=== PATIENT | female | born 1950 | race Caucasian/White ===

== ENCOUNTER 2023-03-03 00:53 | Inpatient (IN) | payer OTHER ==
[2023-03-03] MEDS ORDERED: ONDANSETRON 4 MG/2 ML VIAL IVPUSH ONE (01:38)
[2023-03-03] MEDS ORDERED: SODIUM CHLORIDE 1,000 ML IV STA (01:41)
[2023-03-03] MEDS ORDERED: ACETAMINOPHEN 1000 MG/100 ML BAG IVPB ONE (01:41)
[2023-03-03] MEDS ORDERED: ACETAMINOPHEN INJECTION 100 ML IVPB ONE ×2 (01:57→10:42)
[2023-03-03] MEDS ORDERED: ONDANSETRON 4 MG/2 ML VIAL ONE (01:57)
[2023-03-03 02:32] LABS: BASO % 0.2 % (0-2.0); HEMATOCRIT 34.8 % (32.4-45.2); MCH 21.4 pg (25.7-33.7); MCHC 31.5 g/dl (32.0-36.0); MEAN CELL VOLUME 67.9 fl (80-96); MEAN PLT VOLUME 8.5 fl (7.5-11.1); MONO % 1.8 % (3.8-10.2); PLATELET COUNT 426 10^3/uL (134-434); RBC 5.13 M/mm3 (3.60-5.2); RDW 18.3 % (11.6-15.6)
[2023-03-03 02:34] LABS: VENOUS BASE EXCESS -1.1 mmol/L (-2-2); VENOUS O2 SATURATION 57.6 % (70-80); VENOUS PCO2 45.7 mmHg (38-52); VENOUS PH 7.35 (7.310-7.410)
[2023-03-03 02:40] LABS: INR 1.1 (0.83-1.09); PROTHROMBIN TIME (PATIENT) 12.8 SEC (9.7-13.0)
[2023-03-03 02:43] LABS: ACTIVATED PTT 30.7 SECONDS (25.2-36.5)
[2023-03-03 02:53] LABS: POTASSIUM 4.3 mmol/L (3.5-5.1)
[2023-03-03 02:55] LABS: CALCIUM 9.9 mg/dL (8.5-10.1)
[2023-03-03 02:56] LABS: ALBUMIN 3.9 g/dl (3.4-5.0); BLOOD UREA NITROGEN 16.8 mg/dL (7-18)
[2023-03-03 03:00] LABS: BILIRUBIN,TOTAL 0.6 mg/dL (0.2-1); TOT PROT 8.6 g/dl (6.4-8.2)
[2023-03-03] MEDS ORDERED: morphine CARPU-JECT 4 MG/1 ML DISP.SYRIN IVPUSH ONE ×2 (03:06→06:52)
[2023-03-03 03:09] LABS: LACTIC ACID 2.2 mmol/L (0.4-2.0)
[2023-03-03] MEDS ORDERED: METOCLOPRAMIDE HCL INJECTION 10 MG/2 ML VIAL IVPB ONE (03:19)
[2023-03-03] MEDS ORDERED: morphine SULFATE 4 MG/ML VIAL ONE ×2 (03:58→07:11)
[2023-03-03] MEDS ORDERED: METOCLOPRAMIDE HCL INJECTION 10 MG/2 ML VIAL ONE (03:58)
[2023-03-03 03:59] LABS: ANISOCYTOSIS 2+; MACROCYTOSIS 0; OVALOCYTE 1+
[2023-03-03] MEDS ORDERED: LIDOCAINE HCL 2% JELLY 6 ML TP ONE ×2 (06:37→06:44)
[2023-03-03 06:39] LABS: URINE APPEARANCE CLEAR; URINE BILIRUBIN NEGATIVE (NEGATIVE); URINE COLOR YELLOW; URINE GLUCOSE (UA) 3+ (NEGATIVE); URINE KETONE 1+ (NEGATIVE); URINE LEUK ESTERASE NEGATIVE (NEGATIVE); URINE NITRITE NEGATIVE (NEGATIVE); URINE PROTEIN NEGATIVE (NEGATIVE); URINE UROBILINOGEN 0.2 mg/dL (0.2-1.0)
[2023-03-03] MEDS ORDERED: TRIMETHOBENZAMIDE HCL 200MG/2ML INJ IM PRN (10:57)
[2023-03-03] MEDS: LACTATED RINGERS SOLUTION 1,000 ML/1,000 ML INFUS.BAG IV SCH ×2 (11:07→20:51)
[2023-03-03] MEDS: ACETAMINOPHEN 1000 MG/100 ML BAG IVPB PRN ×2 (11:08→20:51)
[2023-03-03] MEDS ORDERED: LACTATED RINGERS SOLUTION 1000 ML INFUS.BAG IV ONE (14:59)
[2023-03-03] MEDS ORDERED: SERTRALINE HCL 50 MG TABLET (FP) ONE (15:02)
[2023-03-03] MEDS: SERTRALINE HCL 50 MG TABLET (FP) PO SCH (15:21)
[2023-03-03] MEDS: ZIPRASIDONE 20 MG CAPSULE PO SCH (16:53)
[2023-03-03] MEDS ORDERED: ATORVASTATIN CA 80 MG TABLET (FP) PO SCH (22:00)
[2023-03-03] MEDS ORDERED: EZETIMIBE 10 MG TABLET (FP) PO SCH (22:00)
[2023-03-04] MEDS: ACETAMINOPHEN 1000 MG/100 ML BAG IVPB PRN (02:51)
[2023-03-04] MEDS: LACTATED RINGERS SOLUTION 1,000 ML/1,000 ML INFUS.BAG IV SCH ×3 (06:20→21:30)
[2023-03-04] MEDS: ZIPRASIDONE 20 MG CAPSULE PO SCH ×2 (08:17→18:35)
[2023-03-04 08:31] LABS: HEMATOCRIT 33.8 % (32.4-45.2); HEMOGLOBIN 10.3 GM/dL (10.7-15.3); MCH 21.1 pg (25.7-33.7); MCHC 30.6 g/dl (32.0-36.0); MEAN CELL VOLUME 68.9 fl (80-96); MEAN PLT VOLUME 8.8 fl (7.5-11.1); PLATELET COUNT 400 10^3/uL (134-434); RDW 18.5 % (11.6-15.6); WHITE BLOOD COUNT 17.5 K/mm3 (4.0-10.0)
[2023-03-04 08:45] LABS: POTASSIUM 4.3 mmol/L (3.5-5.1)
[2023-03-04 08:48] LABS: CALCIUM 8.6 mg/dL (8.5-10.1)
[2023-03-04 08:49] LABS: BLOOD UREA NITROGEN 32.3 mg/dL (7-18); MAGNESIUM 2.3 mg/dL (1.8-2.4)
[2023-03-04 08:51] LABS: CREATININE 1.5 mg/dL (0.55-1.3)
[2023-03-04 08:52] LABS: PHOSPHOROUS 4.7 mg/dL (2.5-4.9)
[2023-03-04 08:53] LABS: BILIRUBIN,TOTAL 0.9 mg/dL (0.2-1); TOT PROT 6.7 g/dl (6.4-8.2)
[2023-03-04 09:09] LABS: ALBUMIN 2.8 g/dl (3.4-5.0)
[2023-03-04 09:19] LABS: ANISOCYTOSIS 0; MACROCYTOSIS 0
[2023-03-04] MEDS ORDERED: REMDESIVIR 200 MG in SODIUM CHLORIDE 250 ML IVPB ONE (10:00)
[2023-03-04] MEDS: SERTRALINE HCL 50 MG TABLET (FP) PO SCH (10:06)
[2023-03-04] MEDS ORDERED: LACTATED RINGERS SOLUTION 1,000 ML/1,000 ML INFUS.BAG IV SCH (11:24)
[2023-03-04] MEDS ORDERED: SODIUM CHLORIDE 1,000 ML IV STA (12:54)
[2023-03-04 14:10] LABS: LACTIC ACID 2.9 mmol/L (0.4-2.0)
[2023-03-04] MEDS ORDERED: DEXAMETHASONE SOD PHOSPHATE 10 MG/1 ML VIAL IVPUSH SCH (14:15)
[2023-03-04] MEDS ORDERED: HYDROmorphone HCl 2 MG/ML VIAL IVPB PRN (15:15)
[2023-03-04] MEDS ORDERED: PROPOFOL 20 ML ONE (15:46)
[2023-03-04] MEDS ORDERED: LIDOCAINE HCL/PF 2% SDV 5ML VIAL ONE (15:46)
[2023-03-04] MEDS ORDERED: ROCURONIUM BROMIDE 50 MG/5 ML SYRINGE ONE ×2 (15:46→19:28)
[2023-03-04] MEDS ORDERED: SUCCINYLCHOLINE CHLORIDE 200 MG/10 ML SYRINGE ONE (15:46)
[2023-03-04] MEDS ORDERED: MIDAZOLAM HCL 2 MG/2 ML SINGLE DOSE VIAL ONE (15:46)
[2023-03-04] MEDS ORDERED: ACETAMINOPHEN 1000 MG/100 ML BAG IVPB PRN (15:53)
[2023-03-04] MEDS ORDERED: BUPIVACAINE HCL/PF 0.25% (2.5MG/ML) 10 ML VIAL ONE (16:00)
[2023-03-04] MEDS ORDERED: DEXAMETHASONE SOD PHOSPHATE 4 MG/1 ML VIAL ONE (17:03)
[2023-03-04] MEDS ORDERED: ceFAZolin SODIUM 1 GM VIAL ONE (17:07)
[2023-03-04] MEDS ORDERED: ceFAZolin SODIUM 1 GM VIAL IVPB ONE (17:10)
[2023-03-04] MEDS ORDERED: HEPARIN NA (PORCINE) 5,000 UNITS/ML 1ML VIAL ONE (17:30)
[2023-03-04] MEDS ORDERED: NEOSTIGMINE METHYLSULFATE 0.5 MG/1 ML - 10 ML MDV ONE (20:15)
[2023-03-04] MEDS ORDERED: ONDANSETRON 4 MG/2 ML VIAL IVPUSH PRN ×2 (20:30→21:07)
[2023-03-04] MEDS ORDERED: LACTATED RINGERS SOLUTION 1,000 ML IV SCH ×2 (20:30→21:07)
[2023-03-04] MEDS ORDERED: PROMETHAZINE HCL 25 MG/1 ML VIAL IVPB PRN ×2 (20:30→21:07)
[2023-03-04] MEDS ORDERED: KETOROLAC TROMETHAMINE 30 MG/1 ML VIAL IVPUSH ONE ×2 (20:31→21:45)
[2023-03-04] MEDS ORDERED: ACETAMINOPHEN 1000 MG/100 ML BAG IVPB ONE ×2 (20:31→22:00)
[2023-03-04] MEDS ORDERED: METOPROLOL TARTRATE 5 MG/5 ML VIAL ONE (20:33)
[2023-03-04] MEDS ORDERED: METOPROLOL TARTRATE 5 MG/5 ML VIAL IVPUSH ONE ×2 (20:33→21:07)
[2023-03-04] MEDS ORDERED: ONDANSETRON 4 MG/2 ML VIAL ONE (20:38)
[2023-03-04] MEDS ORDERED: ACETAMINOPHEN INJECTION 100 ML IVPB ONE (20:38)
[2023-03-04] MEDS ORDERED: KETOROLAC TROMETHAMINE 30 MG/1 ML VIAL ONE (20:39)
[2023-03-04] MEDS ORDERED: TRIMETHOBENZAMIDE HCL 200MG/2ML INJ IM PRN (21:07)
[2023-03-04] MEDS: MUPIROCIN 2% TOPICAL OINTMENT FOR DECOLONIZATION NS SCH (23:00)
[2023-03-04] MEDS: CHLORHEXIDINE GLUCONATE 4% CLEANSER FOR DECOLONIZATION TP SCH (23:00)
[2023-03-04 23:12] LABS: BASO % 0.1 % (0-2.0); EOS % 0.9 % (0-4.5); HEMATOCRIT 32.4 % (32.4-45.2); HEMOGLOBIN 10.4 GM/dL (10.7-15.3); LYMPH % 6.7 % (8-40); MCH 21.6 pg (25.7-33.7); MEAN CELL VOLUME 67.5 fl (80-96); MEAN PLT VOLUME 8.4 fl (7.5-11.1); MONO % 3.6 % (3.8-10.2); NEUT % 88.7 % (42.8-82.8); PLATELET COUNT 405 10^3/uL (134-434); RDW 18.3 % (11.6-15.6); WHITE BLOOD COUNT 6.6 K/mm3 (4.0-10.0)
[2023-03-04] MEDS: ATORVASTATIN CA 80 MG TABLET (FP) PO SCH (23:13)
[2023-03-04] MEDS: EZETIMIBE 10 MG TABLET (FP) PO SCH (23:13)
[2023-03-04] MEDS: BUDESONIDE/FORMETEROL FUMARATE 80/4.5 mcg INHALER IH SCH (23:13)
[2023-03-04] MEDS ORDERED: PIPERACILLIN/TAZOB 3.375 GM 3.375 GM in DEXTROSE 5%-WATER - 50 ML IVPB SCH (23:15)
[2023-03-04] MEDS: PANTOPRAZOLE SODIUM 40 MG VIAL IVPUSH SCH (23:16)
[2023-03-04] MEDS ORDERED: LACTATED RINGERS SOLUTION 1000 ML INFUS.BAG IV ONE (23:29)
[2023-03-04 23:45] LABS: ANISOCYTOSIS 3+; MACROCYTOSIS 0; OVALOCYTE 1+; TARGET CELLS 1+
[2023-03-04 23:47] LABS: POTASSIUM 4.5 mmol/L (3.5-5.1)
[2023-03-04 23:49] LABS: CALCIUM 7.8 mg/dL (8.5-10.1)
[2023-03-04 23:50] LABS: BLOOD UREA NITROGEN 33.6 mg/dL (7-18); MAGNESIUM 2.2 mg/dL (1.8-2.4)
[2023-03-04 23:53] LABS: CREATININE 1.4 mg/dL (0.55-1.3); PHOSPHOROUS 4.7 mg/dL (2.5-4.9)
[2023-03-04 23:54] LABS: BILIRUBIN,TOTAL 0.6 mg/dL (0.2-1); TOT PROT 5.7 g/dl (6.4-8.2)
[2023-03-04 23:58] LABS: ALBUMIN 2.2 g/dl (3.4-5.0)
[2023-03-05] LABS: LACTIC ACID 4.9 mmol/L (0.4-2.0)
[2023-03-05] MEDS: PIPERACILLIN/TAZOB 3.375 GM 3.375 GM in DEXTROSE 5%-WATER - 50 ML IVPB SCH ×3 (02:14→17:45)
[2023-03-05] MEDS: ACETAMINOPHEN 1000 MG/100 ML BAG IVPB SCH ×4 (02:50→22:01)
[2023-03-05] MEDS ORDERED: LACTATED RINGERS SOLUTION 1000 ML INFUS.BAG IV ONE (03:00)
[2023-03-05] MEDS ORDERED: ACETAMINOPHEN 1000 MG/100 ML BAG IVPB PRN (03:30)
[2023-03-05] MEDS: HYDROmorphone HCl 2 MG/ML VIAL IVPB PRN ×3 (05:17→17:40)
[2023-03-05] MEDS: LACTATED RINGERS SOLUTION 1,000 ML/1,000 ML INFUS.BAG IV SCH ×3 (05:57→22:06)
[2023-03-05 07:19] LABS: HEMATOCRIT 28.3 % (32.4-45.2); HEMOGLOBIN 8.8 GM/dL (10.7-15.3); MCH 21.2 pg (25.7-33.7); MCHC 31.2 g/dl (32.0-36.0); MEAN PLT VOLUME 8.3 fl (7.5-11.1); PLATELET COUNT 349 10^3/uL (134-434); RBC 4.16 M/mm3 (3.60-5.2); RDW 18.5 % (11.6-15.6); WHITE BLOOD COUNT 8.8 K/mm3 (4.0-10.0)
[2023-03-05] MEDS ORDERED: REMDESIVIR 100 MG in SODIUM CHLORIDE 270 ML IVPB SCH (08:00)
[2023-03-05 08:19] LABS: POTASSIUM 4.3 mmol/L (3.5-5.1)
[2023-03-05 08:37] LABS: LACTIC ACID 3.3 mmol/L (0.4-2.0)
[2023-03-05 08:49] LABS: BLOOD UREA NITROGEN 39.6 mg/dL (7-18)
[2023-03-05 08:51] LABS: ALBUMIN 1.9 g/dl (3.4-5.0); CALCIUM 7.9 mg/dL (8.5-10.1)
[2023-03-05 08:53] LABS: CREATININE 1.5 mg/dL (0.55-1.3)
[2023-03-05 08:55] LABS: BILIRUBIN,TOTAL 0.7 mg/dL (0.2-1); TOT PROT 5.1 g/dl (6.4-8.2)
[2023-03-05] MEDS: MUPIROCIN 2% TOPICAL OINTMENT FOR DECOLONIZATION NS SCH ×2 (09:09→22:02)
[2023-03-05] MEDS: PANTOPRAZOLE SODIUM 40 MG VIAL IVPUSH SCH (09:09)
[2023-03-05] MEDS: ZIPRASIDONE 20 MG CAPSULE PO SCH ×2 (09:10→17:58)
[2023-03-05] MEDS: SERTRALINE HCL 50 MG TABLET (FP) PO SCH (09:11)
[2023-03-05] MEDS: ENOXAPARIN NA (PORCINE) 40 MG/0.4 ML DISP.SYRIN SQ SCH (09:28)
[2023-03-05 14:06] LABS: HEMATOCRIT 26.6 % (32.4-45.2); HEMOGLOBIN 8.4 GM/dL (10.7-15.3); MCH 21.5 pg (25.7-33.7); MCHC 31.6 g/dl (32.0-36.0); MEAN CELL VOLUME 67.8 fl (80-96); MEAN PLT VOLUME 8.9 fl (7.5-11.1); PLATELET COUNT 330 10^3/uL (134-434); RBC 3.93 M/mm3 (3.60-5.2); RDW 18.3 % (11.6-15.6); WHITE BLOOD COUNT 9.4 K/mm3 (4.0-10.0)
[2023-03-05 14:26] LABS: CALCIUM 7.6 mg/dL (8.5-10.1)
[2023-03-05 14:28] LABS: ALBUMIN 1.8 g/dl (3.4-5.0); BLOOD UREA NITROGEN 39.6 mg/dL (7-18)
[2023-03-05 14:31] LABS: BILIRUBIN,TOTAL 0.4 mg/dL (0.2-1); CREATININE 1.4 mg/dL (0.55-1.3)
[2023-03-05 14:34] LABS: LACTIC ACID 2.6 mmol/L (0.4-2.0)
[2023-03-05 14:35] LABS: POTASSIUM 4.3 mmol/L (3.5-5.1)
[2023-03-05 15:08] LABS: ANISOCYTOSIS 0; MACROCYTOSIS 0
[2023-03-05] MEDS: BUDESONIDE/FORMETEROL FUMARATE 80/4.5 mcg INHALER IH SCH ×2 (18:34→22:02)
[2023-03-05] MEDS: EZETIMIBE 10 MG TABLET (FP) PO SCH (21:58)
[2023-03-05] MEDS: ATORVASTATIN CA 80 MG TABLET (FP) PO SCH (21:58)
[2023-03-05] MEDS: CHLORHEXIDINE GLUCONATE 4% CLEANSER FOR DECOLONIZATION TP SCH (22:02)
[2023-03-05] MEDS ORDERED: PIPERACILLIN/TAZOB 3.375 GM 3.375 GM in DEXTROSE 5%-WATER - 50 ML IVPB SCH (23:15)
[2023-03-06] MEDS: PIPERACILLIN/TAZOB 3.375 GM 3.375 GM in DEXTROSE 5%-WATER - 50 ML IVPB SCH ×3 (01:45→17:15)
[2023-03-06] MEDS: LACTATED RINGERS SOLUTION 1,000 ML/1,000 ML INFUS.BAG IV SCH ×2 (04:27→07:29)
[2023-03-06] MEDS: ACETAMINOPHEN 1000 MG/100 ML BAG IVPB SCH (04:28)
[2023-03-06] MEDS: ZIPRASIDONE 20 MG CAPSULE PO SCH ×2 (07:48→17:23)
[2023-03-06 08:06] LABS: POTASSIUM 3.6 mmol/L (3.5-5.1)
[2023-03-06 08:10] LABS: ALBUMIN 1.7 g/dl (3.4-5.0); BLOOD UREA NITROGEN 28.7 mg/dL (7-18); CALCIUM 7.6 mg/dL (8.5-10.1); MAGNESIUM 2.3 mg/dL (1.8-2.4)
[2023-03-06 08:13] LABS: CREATININE 0.9 mg/dL (0.55-1.3); PHOSPHOROUS 2.4 mg/dL (2.5-4.9)
[2023-03-06 08:14] LABS: BILIRUBIN,TOTAL 0.4 mg/dL (0.2-1)
[2023-03-06 08:27] LABS: EOS % 0.1 % (0-4.5); HEMATOCRIT 24.1 % (32.4-45.2); HEMOGLOBIN 7.8 GM/dL (10.7-15.3); LYMPH % 10.2 % (8-40); MCH 21.6 pg (25.7-33.7); MCHC 32.6 g/dl (32.0-36.0); MEAN CELL VOLUME 66.2 fl (80-96); MEAN PLT VOLUME 8.5 fl (7.5-11.1); MONO % 3.4 % (3.8-10.2); NEUT % 86.3 % (42.8-82.8); PLATELET COUNT 336 10^3/uL (134-434); RBC 3.64 M/mm3 (3.60-5.2); RDW 18.4 % (11.6-15.6); WHITE BLOOD COUNT 9.1 K/mm3 (4.0-10.0)
[2023-03-06] MEDS: PANTOPRAZOLE SODIUM 40 MG VIAL IVPUSH SCH (09:26)
[2023-03-06] MEDS: MUPIROCIN 2% TOPICAL OINTMENT FOR DECOLONIZATION NS SCH ×2 (09:26→21:28)
[2023-03-06] MEDS: ENOXAPARIN NA (PORCINE) 40 MG/0.4 ML DISP.SYRIN SQ SCH (09:26)
[2023-03-06] MEDS: SODIUM CHLORIDE 0.45% 1,000 ML IV SCH ×2 (09:26→21:49)
[2023-03-06] MEDS: REMDESIVIR 100 MG in SODIUM CHLORIDE 250 ML IVPB SCH (09:27)
[2023-03-06] MEDS ORDERED: DEXMEDETOMIDINE PREMIX 400 MCG/100 ML BAG IVPB SCH (10:00)
[2023-03-06 10:21] LABS: ANISOCYTOSIS 2+; MACROCYTOSIS 0; OVALOCYTE 2+; TARGET CELLS 2+; TEAR DROP CELLS 2+
[2023-03-06] MEDS: SERTRALINE HCL 50 MG TABLET (FP) PO SCH (10:39)
[2023-03-06] MEDS: BUDESONIDE/FORMETEROL FUMARATE 80/4.5 mcg INHALER IH SCH ×2 (10:39→21:36)
[2023-03-06] MEDS: DEXMEDETOMIDINE PREMIX 400 MCG/100 ML BAG IVPB SCH ×2 (10:40→17:15)
[2023-03-06] MEDS: HYDROmorphone HCl 2 MG/ML VIAL IVPB PRN ×2 (12:22→21:29)
[2023-03-06] MEDS: INSULIN (LEVEMIR) 100 UNITS/ML UNITS SQ SCH (13:00)
[2023-03-06 13:45] VITALS: BMI 42.8
[2023-03-06] MEDS ORDERED: DEXAMETHASONE SOD PHOSPHATE 10 MG/1 ML VIAL IVPUSH ONE (16:15)
[2023-03-06] MEDS: CHLORHEXIDINE GLUCONATE 4% CLEANSER FOR DECOLONIZATION TP SCH (21:28)
[2023-03-06] MEDS: EZETIMIBE 10 MG TABLET (FP) PO SCH (21:29)
[2023-03-06] MEDS: ATORVASTATIN CA 80 MG TABLET (FP) PO SCH (21:29)
[2023-03-07] MEDS: DEXMEDETOMIDINE PREMIX 400 MCG/100 ML BAG IVPB SCH ×3 (01:10→17:46)
[2023-03-07] MEDS: PIPERACILLIN/TAZOB 3.375 GM 3.375 GM in DEXTROSE 5%-WATER - 50 ML IVPB SCH ×3 (01:10→17:46)
[2023-03-07] MEDS: SODIUM CHLORIDE 0.45% 1,000 ML IV SCH ×4 (04:47→15:05)
[2023-03-07 07:25] LABS: HEMATOCRIT 23.8 % (32.4-45.2); HEMOGLOBIN 7.6 GM/dL (10.7-15.3); MCH 21.5 pg (25.7-33.7); MCHC 31.9 g/dl (32.0-36.0); MEAN CELL VOLUME 67.3 fl (80-96); MEAN PLT VOLUME 8.4 fl (7.5-11.1); PLATELET COUNT 357 10^3/uL (134-434); RBC 3.54 M/mm3 (3.60-5.2); RDW 18.4 % (11.6-15.6)
[2023-03-07 07:32] LABS: POTASSIUM 3.9 mmol/L (3.5-5.1)
[2023-03-07 07:34] LABS: ALBUMIN 1.7 g/dl (3.4-5.0); BLOOD UREA NITROGEN 26.1 mg/dL (7-18); CALCIUM 7.6 mg/dL (8.5-10.1); MAGNESIUM 2.7 mg/dL (1.8-2.4)
[2023-03-07 07:37] LABS: PHOSPHOROUS 3.3 mg/dL (2.5-4.9)
[2023-03-07 07:38] LABS: CREATININE 0.8 mg/dL (0.55-1.3)
[2023-03-07 07:40] LABS: BILIRUBIN,TOTAL 0.5 mg/dL (0.2-1); TOT PROT 5.4 g/dl (6.4-8.2)
[2023-03-07 08:17] LABS: ARTERIAL BLD GAS O2 SATURATION 95.7 % (95-98); ARTERIAL BLOOD GAS PO2 75.8 mmHg (80-100); ARTERIAL BLOOD GAS pH 7.433 (7.350-7.450)
[2023-03-07 08:19] LABS: ALLENS TEST POSITIVE
[2023-03-07] MEDS: ZIPRASIDONE 20 MG CAPSULE PO SCH ×2 (08:39→17:50)
[2023-03-07 09:44] LABS: ANISOCYTOSIS 2+
[2023-03-07] MEDS: MUPIROCIN 2% TOPICAL OINTMENT FOR DECOLONIZATION NS SCH ×2 (10:32→21:50)
[2023-03-07] MEDS: SERTRALINE HCL 50 MG TABLET (FP) PO SCH (10:33)
[2023-03-07] MEDS: ENOXAPARIN NA (PORCINE) 40 MG/0.4 ML DISP.SYRIN SQ SCH (10:37)
[2023-03-07] MEDS: PANTOPRAZOLE SODIUM 40 MG VIAL IVPUSH SCH (10:37)
[2023-03-07] MEDS: REMDESIVIR 100 MG in SODIUM CHLORIDE 250 ML IVPB SCH (10:37)
[2023-03-07] MEDS: BUDESONIDE/FORMETEROL FUMARATE 80/4.5 mcg INHALER IH SCH ×2 (12:20→21:55)
[2023-03-07] MEDS ORDERED: AMINO ACIDS 4.25%/D5W 1,000 ML IV SCH (13:30)
[2023-03-07] MEDS: HYDROmorphone HCl 2 MG/ML VIAL IVPB PRN (17:47)
[2023-03-07] MEDS: CHLORHEXIDINE GLUCONATE 4% CLEANSER FOR DECOLONIZATION TP SCH (21:50)
[2023-03-07] MEDS: ATORVASTATIN CA 80 MG TABLET (FP) PO SCH (21:51)
[2023-03-07] MEDS: EZETIMIBE 10 MG TABLET (FP) PO SCH (21:52)
[2023-03-08] MEDS: PIPERACILLIN/TAZOB 3.375 GM 3.375 GM in DEXTROSE 5%-WATER - 50 ML IVPB SCH ×3 (01:02→18:07)
[2023-03-08] MEDS: DEXMEDETOMIDINE PREMIX 400 MCG/100 ML BAG IVPB SCH ×3 (05:20→19:26)
[2023-03-08] MEDS: SODIUM CHLORIDE 0.45% 1,000 ML IV SCH (05:36)
[2023-03-08 07:51] LABS: HEMATOCRIT 24.9 % (32.4-45.2); HEMOGLOBIN 7.9 GM/dL (10.7-15.3); MCH 21.3 pg (25.7-33.7); MCHC 31.6 g/dl (32.0-36.0); MEAN CELL VOLUME 67.3 fl (80-96); MEAN PLT VOLUME 8.4 fl (7.5-11.1); PLATELET COUNT 352 10^3/uL (134-434); RBC 3.69 M/mm3 (3.60-5.2); RDW 18.9 % (11.6-15.6); WHITE BLOOD COUNT 7.9 K/mm3 (4.0-10.0)
[2023-03-08 07:55] LABS: POTASSIUM 3.5 mmol/L (3.5-5.1)
[2023-03-08 08:00] LABS: CALCIUM 7.6 mg/dL (8.5-10.1); MAGNESIUM 2.1 mg/dL (1.8-2.4)
[2023-03-08 08:01] LABS: ALBUMIN 1.6 g/dl (3.4-5.0); BLOOD UREA NITROGEN 22.1 mg/dL (7-18)
[2023-03-08 08:04] LABS: CREATININE 0.7 mg/dL (0.55-1.3)
[2023-03-08 08:05] LABS: BILIRUBIN,TOTAL 0.5 mg/dL (0.2-1); TOT PROT 5.5 g/dl (6.4-8.2)
[2023-03-08 09:04] LABS: ANISOCYTOSIS 1+
[2023-03-08] MEDS: AMINO ACIDS 4.25%/D5W 1,000 ML IV SCH ×2 (10:47→21:15)
[2023-03-08] MEDS: REMDESIVIR 100 MG in SODIUM CHLORIDE 250 ML IVPB SCH (10:48)
[2023-03-08] MEDS: ENOXAPARIN NA (PORCINE) 40 MG/0.4 ML DISP.SYRIN SQ SCH (10:48)
[2023-03-08] MEDS: PANTOPRAZOLE SODIUM 40 MG VIAL IVPUSH SCH (10:49)
[2023-03-08] MEDS: HYDROmorphone HCl 2 MG/ML VIAL IVPB PRN ×2 (10:59→16:21)
[2023-03-08] MEDS: ZIPRASIDONE 20 MG CAPSULE PO SCH ×2 (11:43→18:07)
[2023-03-08] MEDS: SERTRALINE HCL 50 MG TABLET (FP) PO SCH (11:43)
[2023-03-08] MEDS: MUPIROCIN 2% TOPICAL OINTMENT FOR DECOLONIZATION NS SCH ×2 (11:44→21:15)
[2023-03-08] MEDS: BUDESONIDE/FORMETEROL FUMARATE 80/4.5 mcg INHALER IH SCH ×2 (11:44→21:15)
[2023-03-08] MEDS ORDERED: INSULIN (NOVOLOG) ASPART 100 UNITS/ML 10ML VIAL ONE (17:10)
[2023-03-08] MEDS ORDERED: INSULIN SLIDING SCALE (NOVOLOG) 1 VIAL SQ SCH (18:00)
[2023-03-08] MEDS: INSULIN SLIDING SCALE (NOVOLOG) 1 VIAL SQ SCH ×2 (18:04→21:44)
[2023-03-08] MEDS: ATORVASTATIN CA 80 MG TABLET (FP) PO SCH (21:15)
[2023-03-08] MEDS: CHLORHEXIDINE GLUCONATE 4% CLEANSER FOR DECOLONIZATION TP SCH (21:15)
[2023-03-08] MEDS: EZETIMIBE 10 MG TABLET (FP) PO SCH (21:16)
[2023-03-09] MEDS: PIPERACILLIN/TAZOB 3.375 GM 3.375 GM in DEXTROSE 5%-WATER - 50 ML IVPB SCH ×3 (02:39→17:38)
[2023-03-09] MEDS: HYDROmorphone HCl 2 MG/ML VIAL IVPB PRN ×2 (03:21→13:40)
[2023-03-09] MEDS: DEXMEDETOMIDINE PREMIX 400 MCG/100 ML BAG IVPB SCH ×2 (05:50→16:52)
[2023-03-09] MEDS: INSULIN SLIDING SCALE (NOVOLOG) 1 VIAL SQ SCH ×4 (06:03→21:03)
[2023-03-09 08:06] LABS: BASO % 0.1 % (0-2.0); EOS % 1.1 % (0-4.5); HEMATOCRIT 25.1 % (32.4-45.2); HEMOGLOBIN 7.8 GM/dL (10.7-15.3); LYMPH % 18.4 % (8-40); MCHC 31.1 g/dl (32.0-36.0); MEAN CELL VOLUME 67.5 fl (80-96); MONO % 4.7 % (3.8-10.2); NEUT % 75.7 % (42.8-82.8); PLATELET COUNT 374 10^3/uL (134-434); RBC 3.71 M/mm3 (3.60-5.2); RDW 18.8 % (11.6-15.6); WHITE BLOOD COUNT 9.9 K/mm3 (4.0-10.0)
[2023-03-09 08:19] LABS: POTASSIUM 3.1 mmol/L (3.5-5.1)
[2023-03-09 08:28] LABS: CALCIUM 7.8 mg/dL (8.5-10.1)
[2023-03-09 08:29] LABS: ALBUMIN 1.6 g/dl (3.4-5.0); BLOOD UREA NITROGEN 20.1 mg/dL (7-18); MAGNESIUM 1.8 mg/dL (1.8-2.4)
[2023-03-09 08:32] LABS: CREATININE 0.6 mg/dL (0.55-1.3)
[2023-03-09 08:33] LABS: BILIRUBIN,TOTAL 0.5 mg/dL (0.2-1); TOT PROT 5.4 g/dl (6.4-8.2)
[2023-03-09] MEDS: AMINO ACIDS 4.25%/D5W 1,000 ML IV SCH ×2 (09:04→21:02)
[2023-03-09] MEDS: ZIPRASIDONE 20 MG CAPSULE PO SCH ×2 (09:04→17:40)
[2023-03-09] MEDS: ENOXAPARIN NA (PORCINE) 40 MG/0.4 ML DISP.SYRIN SQ SCH (09:05)
[2023-03-09] MEDS: SERTRALINE HCL 50 MG TABLET (FP) PO SCH (09:06)
[2023-03-09] MEDS: PANTOPRAZOLE SODIUM 40 MG VIAL IVPUSH SCH (09:10)
[2023-03-09] MEDS: KCL 10 MEQ IVPB 10 MEQ/100 ML INFUS.BAG IVPB SCH ×3 (09:11→11:53)
[2023-03-09] MEDS: MUPIROCIN 2% TOPICAL OINTMENT FOR DECOLONIZATION NS SCH (09:11)
[2023-03-09] MEDS: BUDESONIDE/FORMETEROL FUMARATE 80/4.5 mcg INHALER IH SCH ×2 (09:11→21:03)
[2023-03-09 09:24] LABS: ANISOCYTOSIS 2+
[2023-03-09] MEDS ORDERED: INSULIN (NOVOLOG) ASPART 100 UNITS/ML 10ML VIAL ONE ×3 (12:17→17:00)
[2023-03-09] MEDS: CHLORHEXIDINE GLUCONATE 4% CLEANSER FOR DECOLONIZATION TP SCH (21:03)
[2023-03-09] MEDS: ATORVASTATIN CA 80 MG TABLET (FP) PO SCH (21:03)
[2023-03-09] MEDS: EZETIMIBE 10 MG TABLET (FP) PO SCH (21:03)
[2023-03-10] MEDS: PIPERACILLIN/TAZOB 3.375 GM 3.375 GM in DEXTROSE 5%-WATER - 50 ML IVPB SCH ×3 (01:42→17:38)
[2023-03-10] MEDS: INSULIN SLIDING SCALE (NOVOLOG) 1 VIAL SQ SCH ×4 (05:59→21:39)
[2023-03-10 07:39] LABS: BASO % 0.2 % (0-2.0); EOS % 0.4 % (0-4.5); HEMATOCRIT 24.9 % (32.4-45.2); HEMOGLOBIN 7.5 GM/dL (10.7-15.3); LYMPH % 14.6 % (8-40); MCH 20.5 pg (25.7-33.7); MCHC 30.2 g/dl (32.0-36.0); MEAN CELL VOLUME 67.9 fl (80-96); MEAN PLT VOLUME 8.9 fl (7.5-11.1); MONO % 4.9 % (3.8-10.2); NEUT % 79.9 % (42.8-82.8); PLATELET COUNT 371 10^3/uL (134-434); RBC 3.66 M/mm3 (3.60-5.2); RDW 18.4 % (11.6-15.6); WHITE BLOOD COUNT 13.9 K/mm3 (4.0-10.0)
[2023-03-10 07:56] LABS: POTASSIUM 3.2 mmol/L (3.5-5.1)
[2023-03-10 08:06] LABS: CALCIUM 7.8 mg/dL (8.5-10.1)
[2023-03-10 08:07] LABS: ALBUMIN 1.6 g/dl (3.4-5.0); BLOOD UREA NITROGEN 22.3 mg/dL (7-18); MAGNESIUM 1.9 mg/dL (1.8-2.4)
[2023-03-10 08:10] LABS: CREATININE 0.7 mg/dL (0.55-1.3); PHOSPHOROUS 2.6 mg/dL (2.5-4.9)
[2023-03-10 08:12] LABS: BILIRUBIN,TOTAL 0.7 mg/dL (0.2-1); TOT PROT 5.6 g/dl (6.4-8.2)
[2023-03-10] MEDS: KCL 10 MEQ IVPB 10 MEQ/100 ML INFUS.BAG IVPB SCH ×3 (08:55→10:55)
[2023-03-10] MEDS: AMINO ACIDS 4.25%/D5W 1,000 ML IV SCH ×2 (09:58→21:24)
[2023-03-10] MEDS: ZIPRASIDONE 20 MG CAPSULE PO SCH ×2 (09:58→17:38)
[2023-03-10] MEDS: ENOXAPARIN NA (PORCINE) 40 MG/0.4 ML DISP.SYRIN SQ SCH (09:58)
[2023-03-10] MEDS: SERTRALINE HCL 50 MG TABLET (FP) PO SCH (09:59)
[2023-03-10] MEDS: BUDESONIDE/FORMETEROL FUMARATE 80/4.5 mcg INHALER IH SCH ×2 (09:59→21:23)
[2023-03-10] MEDS: PANTOPRAZOLE SODIUM 40 MG VIAL IVPUSH SCH (09:59)
[2023-03-10] MEDS: INSULIN (NOVOLOG) ASPART 100 UNITS/ML 10ML VIAL SQ SCH ×3 (11:54→21:39)
[2023-03-10] MEDS ORDERED: ACETAMINOPHEN 325 MG TABLET (FP) PO ONE (19:13)
[2023-03-10] MEDS: CHLORHEXIDINE GLUCONATE 4% CLEANSER FOR DECOLONIZATION TP SCH (21:23)
[2023-03-10] MEDS: EZETIMIBE 10 MG TABLET (FP) PO SCH (21:23)
[2023-03-10] MEDS: ATORVASTATIN CA 80 MG TABLET (FP) PO SCH (21:23)
[2023-03-10] MEDS: INSULIN (LEVEMIR) 100 UNITS/ML UNITS SQ SCH (21:24)
[2023-03-10] MEDS: HYDROmorphone HCl 2 MG/ML VIAL IVPB PRN (21:26)
[2023-03-11] MEDS: PIPERACILLIN/TAZOB 3.375 GM 3.375 GM in DEXTROSE 5%-WATER - 50 ML IVPB SCH ×2 (01:44→09:09)
[2023-03-11] MEDS: INSULIN (NOVOLOG) ASPART 100 UNITS/ML 10ML VIAL SQ SCH ×4 (06:03→21:40)
[2023-03-11] MEDS: INSULIN SLIDING SCALE (NOVOLOG) 1 VIAL SQ SCH ×4 (06:03→21:40)
[2023-03-11] MEDS: HYDROmorphone HCl 2 MG/ML VIAL IVPB PRN ×2 (07:59→16:41)
[2023-03-11] MEDS: SERTRALINE HCL 50 MG TABLET (FP) PO SCH (09:09)
[2023-03-11] MEDS: ZIPRASIDONE 20 MG CAPSULE PO SCH ×2 (09:09→17:13)
[2023-03-11] MEDS: PANTOPRAZOLE SODIUM 40 MG VIAL IVPUSH SCH (09:09)
[2023-03-11] MEDS: ENOXAPARIN NA (PORCINE) 40 MG/0.4 ML DISP.SYRIN SQ SCH (09:09)
[2023-03-11] MEDS: AMINO ACIDS 4.25%/D5W 1,000 ML IV SCH ×2 (09:10→21:30)
[2023-03-11] MEDS: INSULIN (LEVEMIR) 100 UNITS/ML UNITS SQ SCH ×2 (09:10→21:39)
[2023-03-11] MEDS: BUDESONIDE/FORMETEROL FUMARATE 80/4.5 mcg INHALER IH SCH ×2 (09:11→21:31)
[2023-03-11] MEDS: DEXMEDETOMIDINE PREMIX 400 MCG/100 ML BAG IVPB SCH (19:17)
[2023-03-11] MEDS: ATORVASTATIN CA 80 MG TABLET (FP) PO SCH (21:31)
[2023-03-11] MEDS: EZETIMIBE 10 MG TABLET (FP) PO SCH (21:31)
[2023-03-11] MEDS: CHLORHEXIDINE GLUCONATE 4% CLEANSER FOR DECOLONIZATION TP SCH (21:31)
[2023-03-12] MEDS: HYDROmorphone HCl 2 MG/ML VIAL IVPB PRN (00:53)
[2023-03-12] MEDS: INSULIN SLIDING SCALE (NOVOLOG) 1 VIAL SQ SCH ×4 (06:39→21:17)
[2023-03-12] MEDS: INSULIN (NOVOLOG) ASPART 100 UNITS/ML 10ML VIAL SQ SCH ×4 (06:39→21:18)
[2023-03-12] MEDS ORDERED: HYDROmorphone HCl 2 MG/ML VIAL IVPUSH PRN (08:06)
[2023-03-12] MEDS ORDERED: ALBUTEROL SO4 HFA INHALER IH PRN (08:33)
[2023-03-12] MEDS: SERTRALINE HCL 50 MG TABLET (FP) PO SCH (10:00)
[2023-03-12] MEDS: amLODIPine BESYLATE 10 MG TABLET (FP) PO SCH (10:01)
[2023-03-12] MEDS: ZIPRASIDONE 20 MG CAPSULE PO SCH ×2 (10:01→17:30)
[2023-03-12] MEDS: ENOXAPARIN NA (PORCINE) 40 MG/0.4 ML DISP.SYRIN SQ SCH (10:01)
[2023-03-12 10:07] LABS: POTASSIUM 3.7 mmol/L (3.5-5.1)
[2023-03-12 10:09] LABS: CALCIUM 7.5 mg/dL (8.5-10.1)
[2023-03-12 10:10] LABS: ALBUMIN 1.5 g/dl (3.4-5.0); BLOOD UREA NITROGEN 13.2 mg/dL (7-18); MAGNESIUM 1.7 mg/dL (1.8-2.4)
[2023-03-12 10:13] LABS: CREATININE 0.6 mg/dL (0.55-1.3); PHOSPHOROUS 1.7 mg/dL (2.5-4.9)
[2023-03-12 10:14] LABS: TOT PROT 5.7 g/dl (6.4-8.2)
[2023-03-12 10:15] LABS: BILIRUBIN,TOTAL 0.6 mg/dL (0.2-1)
[2023-03-12] MEDS ORDERED: NAPH,MB-DB/K PH,MBDB POWDER PACKET PO ONE (11:30)
[2023-03-12] MEDS: INSULIN (LEVEMIR) 100 UNITS/ML UNITS SQ SCH ×2 (11:34→21:18)
[2023-03-12] MEDS: BUDESONIDE/FORMETEROL FUMARATE 80/4.5 mcg INHALER IH SCH ×2 (11:35→21:19)
[2023-03-12] MEDS: AMINO ACIDS 4.25%/D5W 1,000 ML IV SCH ×2 (11:35→21:19)
[2023-03-12] MEDS: HYDROmorphone HCl 2 MG/ML VIAL IVPUSH PRN (11:46)
[2023-03-12 13:40] LABS: BASO % 0.2 % (0-2.0); EOS % 0.9 % (0-4.5); HEMATOCRIT 24.4 % (32.4-45.2); HEMOGLOBIN 7.7 GM/dL (10.7-15.3); LYMPH % 10.5 % (8-40); MCH 21.2 pg (25.7-33.7); MCHC 31.4 g/dl (32.0-36.0); MEAN CELL VOLUME 67.4 fl (80-96); MEAN PLT VOLUME 8.8 fl (7.5-11.1); MONO % 5.4 % (3.8-10.2); PLATELET COUNT 425 10^3/uL (134-434); RBC 3.62 M/mm3 (3.60-5.2); RDW 18.9 % (11.6-15.6); WHITE BLOOD COUNT 12.4 K/mm3 (4.0-10.0)
[2023-03-12 13:59] LABS: CALCIUM 7.6 mg/dL (8.5-10.1); POTASSIUM 3.1 mmol/L (3.5-5.1)
[2023-03-12 14:00] LABS: BLOOD UREA NITROGEN 12.1 mg/dL (7-18); MAGNESIUM 1.6 mg/dL (1.8-2.4)
[2023-03-12 14:06] LABS: CREATININE 0.5 mg/dL (0.55-1.3)
[2023-03-12 14:11] LABS: ANISOCYTOSIS 2+; MACROCYTOSIS 0; OVALOCYTE 1+
[2023-03-12] MEDS: GABAPENTIN 300 MG CAPSULE PO SCH ×2 (14:58→21:19)
[2023-03-12] MEDS ORDERED: POTASSIUM CHLORIDE ORAL LIQUID 20 MEQ/15 ML PO ONE (15:30)
[2023-03-12] MEDS ORDERED: MAGNESIUM SULFATE IN WATER 2 GM/50 ML IVPB IVPB ONE (15:30)
[2023-03-12] MEDS: KCL 10 MEQ IVPB 10 MEQ/100 ML INFUS.BAG IVPB SCH ×3 (16:08→18:26)
[2023-03-12] MEDS: CHLORHEXIDINE GLUCONATE 4% CLEANSER FOR DECOLONIZATION TP SCH (21:18)
[2023-03-12] MEDS: ACETAMINOPHEN 1000 MG/100 ML BAG IVPB PRN (21:18)
[2023-03-12] MEDS: ATORVASTATIN CA 80 MG TABLET (FP) PO SCH (21:19)
[2023-03-12] MEDS: EZETIMIBE 10 MG TABLET (FP) PO SCH (21:19)
[2023-03-13] MEDS: HYDROmorphone HCl 2 MG/ML VIAL IVPUSH PRN ×2 (02:29→16:31)
[2023-03-13] MEDS: GABAPENTIN 300 MG CAPSULE PO SCH ×3 (06:13→21:37)
[2023-03-13] MEDS: INSULIN SLIDING SCALE (NOVOLOG) 1 VIAL SQ SCH ×4 (06:13→21:48)
[2023-03-13] MEDS: INSULIN (NOVOLOG) ASPART 100 UNITS/ML 10ML VIAL SQ SCH ×4 (06:14→21:48)
[2023-03-13 07:49] LABS: BASO % 0.5 % (0-2.0); EOS % 0.7 % (0-4.5); HEMATOCRIT 24.5 % (32.4-45.2); HEMOGLOBIN 7.6 GM/dL (10.7-15.3); LYMPH % 10.9 % (8-40); MCH 21.2 pg (25.7-33.7); MCHC 31.2 g/dl (32.0-36.0); MEAN PLT VOLUME 8.4 fl (7.5-11.1); MONO % 6.8 % (3.8-10.2); NEUT % 81.1 % (42.8-82.8); PLATELET COUNT 470 10^3/uL (134-434); RBC 3.61 M/mm3 (3.60-5.2); RDW 18.5 % (11.6-15.6); WHITE BLOOD COUNT 12.3 K/mm3 (4.0-10.0)
[2023-03-13 08:12] LABS: MAGNESIUM 2.2 mg/dL (1.8-2.4)
[2023-03-13 08:16] LABS: PHOSPHOROUS 2.5 mg/dL (2.5-4.9)
[2023-03-13] MEDS: amLODIPine BESYLATE 10 MG TABLET (FP) PO SCH (10:10)
[2023-03-13] MEDS: AMINO ACIDS 4.25%/D5W 1,000 ML IV SCH ×2 (10:10→21:14)
[2023-03-13] MEDS: ZIPRASIDONE 20 MG CAPSULE PO SCH ×2 (10:10→17:45)
[2023-03-13] MEDS: SERTRALINE HCL 50 MG TABLET (FP) PO SCH (10:10)
[2023-03-13] MEDS: PANTOPRAZOLE 40 MG TABLET PO SCH (10:10)
[2023-03-13] MEDS: ENOXAPARIN NA (PORCINE) 40 MG/0.4 ML DISP.SYRIN SQ SCH (10:10)
[2023-03-13] MEDS: INSULIN (LEVEMIR) 100 UNITS/ML UNITS SQ SCH ×2 (10:10→21:48)
[2023-03-13] MEDS ORDERED: ALBUTEROL SO4 0.083% IH SOL 2.5 MG/3 ML VIAL.NEB. NEB PRN (10:17)
[2023-03-13] MEDS: BUDESONIDE/FORMETEROL FUMARATE 80/4.5 mcg INHALER IH SCH ×2 (12:32→21:47)
[2023-03-13] MEDS: ACETAMINOPHEN 1000 MG/100 ML BAG IVPB PRN (16:32)
[2023-03-13] MEDS: guaiFENesin 200 MG/10 ML 10 ML UNIT-DOSE CUPS PO PRN (16:33)
[2023-03-13] MEDS: CHLORHEXIDINE GLUCONATE 4% CLEANSER FOR DECOLONIZATION TP SCH (21:35)
[2023-03-13] MEDS: ATORVASTATIN CA 80 MG TABLET (FP) PO SCH (21:37)
[2023-03-13] MEDS: EZETIMIBE 10 MG TABLET (FP) PO SCH (21:37)
[2023-03-14] MEDS: ACETAMINOPHEN 1000 MG/100 ML BAG IVPB PRN ×3 (02:48→17:32)
[2023-03-14] MEDS: AMINO ACIDS 4.25%/D5W 1,000 ML IV SCH ×3 (03:03→21:36)
[2023-03-14] MEDS: GABAPENTIN 300 MG CAPSULE PO SCH ×3 (05:55→21:37)
[2023-03-14] MEDS: INSULIN SLIDING SCALE (NOVOLOG) 1 VIAL SQ SCH ×4 (06:01→22:03)
[2023-03-14] MEDS: INSULIN (NOVOLOG) ASPART 100 UNITS/ML 10ML VIAL SQ SCH ×3 (06:01→17:35)
[2023-03-14] MEDS: PANTOPRAZOLE 40 MG TABLET PO SCH (10:31)
[2023-03-14] MEDS: SERTRALINE HCL 50 MG TABLET (FP) PO SCH (10:31)
[2023-03-14] MEDS: amLODIPine BESYLATE 10 MG TABLET (FP) PO SCH (10:31)
[2023-03-14] MEDS: INSULIN (LEVEMIR) 100 UNITS/ML UNITS SQ SCH ×2 (10:31→22:03)
[2023-03-14] MEDS: ENOXAPARIN NA (PORCINE) 40 MG/0.4 ML DISP.SYRIN SQ SCH (10:32)
[2023-03-14] MEDS: BUDESONIDE/FORMETEROL FUMARATE 80/4.5 mcg INHALER IH SCH ×2 (10:32→22:04)
[2023-03-14] MEDS: ZIPRASIDONE 20 MG CAPSULE PO SCH ×2 (10:33→17:35)
[2023-03-14] MEDS: guaiFENesin 200 MG/10 ML 10 ML UNIT-DOSE CUPS PO PRN ×2 (10:45→17:32)
[2023-03-14] MEDS: HYDROmorphone HCl 2 MG/ML VIAL IVPUSH PRN (17:33)
[2023-03-14] MEDS ORDERED: VANCOMYCIN/WATER FOR INJ (PEG) 1,000 MG/200 ML BAG IVPB ONE (20:05)
[2023-03-14] MEDS: ALBUTEROL SO4 0.083% IH SOL 2.5 MG/3 ML VIAL.NEB. NEB SCH (20:30)
[2023-03-14] MEDS: MEROPENEM 1 GM in DEXTROSE 5%-WATER 100 ML IVPB SCH (21:36)
[2023-03-14] MEDS: CHLORHEXIDINE GLUCONATE 4% CLEANSER FOR DECOLONIZATION TP SCH (21:37)
[2023-03-14] MEDS: ATORVASTATIN CA 80 MG TABLET (FP) PO SCH (21:37)
[2023-03-14 22:05] LABS: EPI CELLS >36 /uL (0-25.1); HYALINE CASTS 0 /uL (0-3.1); URINE APPEARANCE CLEAR; URINE BACTERIA 7 /uL (0-1359); URINE BILIRUBIN NEGATIVE (NEGATIVE); URINE COLOR YELLOW; URINE GLUCOSE (UA) NEGATIVE (NEGATIVE); URINE KETONE NEGATIVE (NEGATIVE); URINE LEUK ESTERASE NEGATIVE (NEGATIVE); URINE NITRITE NEGATIVE (NEGATIVE); URINE PROTEIN 1+ (NEGATIVE); URINE RBC 26 /uL (0-23.9); URINE WBC 20 /uL (0-25.8)
[2023-03-14] MEDS: EZETIMIBE 10 MG TABLET (FP) PO SCH (22:10)
[2023-03-14 23:20] LABS: WHITE BLOOD COUNT 9.7 K/mm3 (4.0-10.0)
[2023-03-14 23:23] LABS: BASO % 0.4 % (0-2.0); EOS % 0.4 % (0-4.5); HEMATOCRIT 21.9 % (32.4-45.2); LYMPH % 19.5 % (8-40); MCH 21.6 pg (25.7-33.7); MCHC 32.1 g/dl (32.0-36.0); MEAN CELL VOLUME 67.3 fl (80-96); MEAN PLT VOLUME 8.3 fl (7.5-11.1); MONO % 10.4 % (3.8-10.2); NEUT % 69.3 % (42.8-82.8); PLATELET COUNT 452 10^3/uL (134-434); RBC 3.26 M/mm3 (3.60-5.2); RDW 19.6 % (11.6-15.6)
[2023-03-14 23:52] LABS: CHLORIDE 98 mmol/L (98-107); SODIUM 134 mmol/L (136-145)
[2023-03-14 23:54] LABS: ALBUMIN 1.6 g/dl (3.4-5.0); CALCIUM 7.6 mg/dL (8.5-10.1); CO2 32 mmol/L (21-32); GLUCOSE,RANDOM 199 mg/dL (74-106); MAGNESIUM 1.8 mg/dL (1.8-2.4)
[2023-03-14 23:57] LABS: CREATININE 0.7 mg/dL (0.55-1.3); PHOSPHOROUS 2.3 mg/dL (2.5-4.9); SGOT/AST 26 U/L (15-37)
[2023-03-14 23:58] LABS: SGPT/ALT 13 U/L (13-61)
[2023-03-14 23:59] LABS: BILIRUBIN,TOTAL 0.3 mg/dL (0.2-1); TOT PROT 5.8 g/dl (6.4-8.2)
[2023-03-15] LABS: ALK PHOS 66 U/L (45-117)
[2023-03-15 00:12] LABS: ANION GAP 4 mmol/L (4-13); POTASSIUM 2.9 mmol/L (3.5-5.1)
[2023-03-15] MEDS: MEROPENEM 1 GM in DEXTROSE 5%-WATER 100 ML IVPB SCH ×4 (00:25→20:16)
[2023-03-15] MEDS ORDERED: POTASSIUM CHLORIDE ORAL LIQUID 20 MEQ/15 ML PO ONE (00:45)
[2023-03-15] MEDS: KCL 10 MEQ IVPB 10 MEQ/100 ML INFUS.BAG IVPB SCH ×3 (01:14→02:56)
[2023-03-15] MEDS: INSULIN (NOVOLOG) ASPART 100 UNITS/ML 10ML VIAL SQ SCH ×5 (01:18→21:55)
[2023-03-15] MEDS: AMINO ACIDS 4.25%/D5W 1,000 ML IV SCH (03:56)
[2023-03-15] MEDS: ACETAMINOPHEN 1000 MG/100 ML BAG IVPB PRN ×2 (04:00→13:10)
[2023-03-15] MEDS: ALBUTEROL SO4 0.083% IH SOL 2.5 MG/3 ML VIAL.NEB. NEB SCH ×6 (04:01→21:09)
[2023-03-15] MEDS: GABAPENTIN 300 MG CAPSULE PO SCH ×3 (05:57→21:54)
[2023-03-15] MEDS: INSULIN SLIDING SCALE (NOVOLOG) 1 VIAL SQ SCH ×4 (06:13→21:55)
[2023-03-15 07:46] LABS: BASO % 0.8 % (0-2.0); EOS % 0.7 % (0-4.5); HEMATOCRIT 23.3 % (32.4-45.2); HEMOGLOBIN 7.5 GM/dL (10.7-15.3); LYMPH % 17.9 % (8-40); MCH 21.9 pg (25.7-33.7); MCHC 32.1 g/dl (32.0-36.0); MEAN CELL VOLUME 68.3 fl (80-96); MEAN PLT VOLUME 8.2 fl (7.5-11.1); MONO % 11.7 % (3.8-10.2); NEUT % 68.9 % (42.8-82.8); PLATELET COUNT 566 10^3/uL (134-434); RBC 3.41 M/mm3 (3.60-5.2); RDW 19.7 % (11.6-15.6)
[2023-03-15 08:15] LABS: POTASSIUM 3.6 mmol/L (3.5-5.1)
[2023-03-15 08:17] LABS: CALCIUM 8.1 mg/dL (8.5-10.1)
[2023-03-15 08:18] LABS: ALBUMIN 1.7 g/dl (3.4-5.0); BLOOD UREA NITROGEN 17.8 mg/dL (7-18); MAGNESIUM 1.9 mg/dL (1.8-2.4)
[2023-03-15 08:20] LABS: CREATININE 0.7 mg/dL (0.55-1.3)
[2023-03-15 08:21] LABS: PHOSPHOROUS 2.1 mg/dL (2.5-4.9)
[2023-03-15 08:23] LABS: BILIRUBIN,TOTAL 0.7 mg/dL (0.2-1); TOT PROT 6.5 g/dl (6.4-8.2)
[2023-03-15] MEDS ORDERED: INSULIN (NOVOLOG) ASPART 100 UNITS/ML 10ML VIAL ONE ×2 (09:13→19:30)
[2023-03-15] MEDS: ZIPRASIDONE 20 MG CAPSULE PO SCH ×2 (09:15→17:25)
[2023-03-15] MEDS: SERTRALINE HCL 50 MG TABLET (FP) PO SCH (09:42)
[2023-03-15] MEDS: ENOXAPARIN NA (PORCINE) 40 MG/0.4 ML DISP.SYRIN SQ SCH (09:43)
[2023-03-15] MEDS: PANTOPRAZOLE 40 MG TABLET PO SCH (09:43)
[2023-03-15] MEDS: amLODIPine BESYLATE 10 MG TABLET (FP) PO SCH (09:43)
[2023-03-15] MEDS: guaiFENesin 200 MG/10 ML 10 ML UNIT-DOSE CUPS PO PRN (09:45)
[2023-03-15] MEDS: INSULIN (LEVEMIR) 100 UNITS/ML UNITS SQ SCH ×2 (09:52→21:54)
[2023-03-15] MEDS: BUDESONIDE/FORMETEROL FUMARATE 80/4.5 mcg INHALER IH SCH ×2 (09:56→21:55)
[2023-03-15] MEDS ORDERED: TRIMETHOBENZAMIDE HCL 200MG/2ML INJ IM PRN (10:24)
[2023-03-15] MEDS: SODIUM CHLORIDE 1,000 ML IV SCH (18:00)
[2023-03-15] MEDS: VANCOMYCIN/WATER 1250 MG 1,250 MG/250 ML BAG IVPB SCH (18:15)
[2023-03-15] MEDS ORDERED: ACETAMINOPHEN 1000 MG/100 ML BAG IVPB ONE (18:54)
[2023-03-15] MEDS: CHLORHEXIDINE GLUCONATE 4% CLEANSER FOR DECOLONIZATION TP SCH (21:54)
[2023-03-15] MEDS: EZETIMIBE 10 MG TABLET (FP) PO SCH (21:54)
[2023-03-15] MEDS: ATORVASTATIN CA 40 MG TABLET (FP) PO SCH (21:54)
[2023-03-16] MEDS: ALBUTEROL SO4 0.083% IH SOL 2.5 MG/3 ML VIAL.NEB. NEB SCH ×6 (00:53→21:07)
[2023-03-16] MEDS: MEROPENEM 1 GM in DEXTROSE 5%-WATER 100 ML IVPB SCH ×3 (03:20→20:11)
[2023-03-16] MEDS: ACETAMINOPHEN 1000 MG/100 ML BAG IVPB PRN ×4 (03:27→20:11)
[2023-03-16] MEDS: VANCOMYCIN/WATER 1250 MG 1,250 MG/250 ML BAG IVPB SCH ×2 (04:15→17:22)
[2023-03-16] MEDS: INSULIN (NOVOLOG) ASPART 100 UNITS/ML 10ML VIAL SQ SCH ×4 (06:11→21:55)
[2023-03-16] MEDS: INSULIN SLIDING SCALE (NOVOLOG) 1 VIAL SQ SCH ×4 (06:13→21:55)
[2023-03-16] MEDS: GABAPENTIN 300 MG CAPSULE PO SCH ×3 (06:16→21:44)
[2023-03-16] MEDS: ZIPRASIDONE 20 MG CAPSULE PO SCH ×2 (08:00→17:23)
[2023-03-16 08:16] LABS: HEMATOCRIT 22.7 % (32.4-45.2); HEMOGLOBIN 7.3 GM/dL (10.7-15.3); MCH 21.8 pg (25.7-33.7); MCHC 32.1 g/dl (32.0-36.0); MEAN CELL VOLUME 67.9 fl (80-96); MEAN PLT VOLUME 8.8 fl (7.5-11.1); PLATELET COUNT 537 10^3/uL (134-434); RBC 3.35 M/mm3 (3.60-5.2); RDW 19.7 % (11.6-15.6); WHITE BLOOD COUNT 7.5 K/mm3 (4.0-10.0)
[2023-03-16 08:33] LABS: POTASSIUM 3.5 mmol/L (3.5-5.1)
[2023-03-16 08:37] LABS: CALCIUM 7.9 mg/dL (8.5-10.1)
[2023-03-16 08:38] LABS: ALBUMIN 1.5 g/dl (3.4-5.0); BLOOD UREA NITROGEN 12.9 mg/dL (7-18); MAGNESIUM 1.8 mg/dL (1.8-2.4)
[2023-03-16 08:40] LABS: PHOSPHOROUS 2.8 mg/dL (2.5-4.9)
[2023-03-16 08:41] LABS: CREATININE 0.6 mg/dL (0.55-1.3)
[2023-03-16 08:42] LABS: BILIRUBIN,TOTAL 0.4 mg/dL (0.2-1); TOT PROT 5.9 g/dl (6.4-8.2)
[2023-03-16] MEDS: PANTOPRAZOLE 40 MG TABLET PO SCH (10:01)
[2023-03-16] MEDS: guaiFENesin 200 MG/10 ML 10 ML UNIT-DOSE CUPS PO PRN (10:01)
[2023-03-16] MEDS: amLODIPine BESYLATE 10 MG TABLET (FP) PO SCH (10:02)
[2023-03-16] MEDS: SERTRALINE HCL 50 MG TABLET (FP) PO SCH (10:02)
[2023-03-16] MEDS: INSULIN (LEVEMIR) 100 UNITS/ML UNITS SQ SCH ×2 (10:03→21:44)
[2023-03-16] MEDS: ENOXAPARIN NA (PORCINE) 40 MG/0.4 ML DISP.SYRIN SQ SCH (10:04)
[2023-03-16] MEDS: BUDESONIDE/FORMETEROL FUMARATE 80/4.5 mcg INHALER IH SCH ×2 (10:05→21:44)
[2023-03-16] MEDS ORDERED: FENTANYL CITRATE/PF 50 MCG/ML VIAL ONE (11:58)
[2023-03-16] MEDS ORDERED: MIDAZOLAM HCL 2 MG/2 ML SINGLE DOSE VIAL ONE (11:58)
[2023-03-16] MEDS ORDERED: SODIUM CHLORIDE 500 ML IV SCH (12:40)
[2023-03-16] MEDS ORDERED: FENTANYL CITRATE/PF 50 MCG/ML VIAL IVPUSH ONE (12:50)
[2023-03-16] MEDS ORDERED: MIDAZOLAM HCL 2 MG/2 ML SINGLE DOSE VIAL IVPUSH ONE (12:50)
[2023-03-16] MEDS ORDERED: MULTIVIT INJ. ADULT COMBO WITH VIT K 1 COMBO 10 ML VIAL IV SCH (17:00)
[2023-03-16] MEDS: SODIUM CHLORIDE 1,000 ML IV SCH (17:22)
[2023-03-16] MEDS ORDERED: INSULIN (NOVOLOG) ASPART 100 UNITS/ML 10ML VIAL ONE (17:54)
[2023-03-16] MEDS: AMINO ACIDS 4.25%/D5W 1,000 ML IV SCH (18:08)
[2023-03-16] MEDS: EZETIMIBE 10 MG TABLET (FP) PO SCH (21:44)
[2023-03-16] MEDS: ATORVASTATIN CA 40 MG TABLET (FP) PO SCH (21:44)
[2023-03-16] MEDS: CHLORHEXIDINE GLUCONATE 4% CLEANSER FOR DECOLONIZATION TP SCH (21:44)
[2023-03-17] MEDS: ALBUTEROL SO4 0.083% IH SOL 2.5 MG/3 ML VIAL.NEB. NEB SCH ×6 (00:25→20:33)
[2023-03-17] MEDS: ACETAMINOPHEN 1000 MG/100 ML BAG IVPB PRN ×2 (01:13→10:10)
[2023-03-17] MEDS: MEROPENEM 1 GM in DEXTROSE 5%-WATER 100 ML IVPB SCH ×3 (03:38→21:10)
[2023-03-17] MEDS: VANCOMYCIN/WATER 1250 MG 1,250 MG/250 ML BAG IVPB SCH ×2 (04:33→23:06)
[2023-03-17] MEDS: GABAPENTIN 300 MG CAPSULE PO SCH ×3 (06:10→21:11)
[2023-03-17] MEDS: AMINO ACIDS 4.25%/D5W 1,000 ML IV SCH ×2 (06:10→17:28)
[2023-03-17 06:20] LABS: BASO % 0.3 % (0-2.0); EOS % 0.5 % (0-4.5); HEMATOCRIT 21.6 % (32.4-45.2); LYMPH % 13.1 % (8-40); MCH 21.1 pg (25.7-33.7); MCHC 31.1 g/dl (32.0-36.0); MEAN CELL VOLUME 67.9 fl (80-96); MEAN PLT VOLUME 8.2 fl (7.5-11.1); MONO % 9.1 % (3.8-10.2); PLATELET COUNT 619 10^3/uL (134-434); RBC 3.19 M/mm3 (3.60-5.2); RDW 20.1 % (11.6-15.6); WHITE BLOOD COUNT 10.4 K/mm3 (4.0-10.0)
[2023-03-17] MEDS: INSULIN (NOVOLOG) ASPART 100 UNITS/ML 10ML VIAL SQ SCH ×3 (06:20→16:03)
[2023-03-17] MEDS: INSULIN SLIDING SCALE (NOVOLOG) 1 VIAL SQ SCH ×4 (06:21→21:11)
[2023-03-17 06:37] LABS: POTASSIUM 3.3 mmol/L (3.5-5.1)
[2023-03-17 06:40] LABS: CALCIUM 8.1 mg/dL (8.5-10.1)
[2023-03-17 06:41] LABS: ALBUMIN 1.4 g/dl (3.4-5.0); BLOOD UREA NITROGEN 12.5 mg/dL (7-18); MAGNESIUM 1.6 mg/dL (1.8-2.4)
[2023-03-17 06:44] LABS: CREATININE 0.6 mg/dL (0.55-1.3); PHOSPHOROUS 2.7 mg/dL (2.5-4.9)
[2023-03-17 06:45] LABS: BILIRUBIN,TOTAL 0.6 mg/dL (0.2-1); TOT PROT 5.7 g/dl (6.4-8.2)
[2023-03-17 06:51] LABS: HEMOGLOBIN 6.7 GM/dL (10.7-15.3)
[2023-03-17] MEDS ORDERED: POTASSIUM CHLORIDE TABS 20 MEQ TABLET.ER (FP) PO ONE (08:30)
[2023-03-17 08:54] LABS: ANISOCYTOSIS 3+; MACROCYTOSIS 0; TARGET CELLS 1+; TEAR DROP CELLS 1+
[2023-03-17] MEDS: ZIPRASIDONE 20 MG CAPSULE PO SCH ×2 (08:55→17:29)
[2023-03-17] MEDS ORDERED: MAGNESIUM 2GM/50ML STERILE WATER IVPB IVPB ONE (09:00)
[2023-03-17] MEDS: INSULIN (LEVEMIR) 100 UNITS/ML UNITS SQ SCH ×2 (10:03→21:11)
[2023-03-17] MEDS: ENOXAPARIN NA (PORCINE) 40 MG/0.4 ML DISP.SYRIN SQ SCH (10:05)
[2023-03-17] MEDS: SERTRALINE HCL 50 MG TABLET (FP) PO SCH (10:10)
[2023-03-17] MEDS: PANTOPRAZOLE 40 MG TABLET PO SCH (10:10)
[2023-03-17] MEDS: amLODIPine BESYLATE 10 MG TABLET (FP) PO SCH (10:11)
[2023-03-17] MEDS: guaiFENesin 200 MG/10 ML 10 ML UNIT-DOSE CUPS PO PRN ×2 (10:11→17:29)
[2023-03-17] MEDS: BUDESONIDE/FORMETEROL FUMARATE 80/4.5 mcg INHALER IH SCH ×2 (10:11→21:12)
[2023-03-17] MEDS ORDERED: LACTATED RINGERS SOLUTION 1,000 ML/1,000 ML INFUS.BAG IV SCH (15:15)
[2023-03-17 16:25] LABS: ARTERIAL BLD GAS O2 SATURATION 94.7 % (95-98); ARTERIAL BLOOD GAS BASE EXCESS 1.5 mmol/L (-2-2); ARTERIAL BLOOD GAS PO2 72.9 mmHg (80-100); ARTERIAL BLOOD GAS pH 7.405 (7.350-7.450)
[2023-03-17 16:31] LABS: ALLENS TEST POSITIVE
[2023-03-17] MEDS ORDERED: INSULIN (NOVOLOG) ASPART 100 UNITS/ML 10ML VIAL ONE (17:40)
[2023-03-17] MEDS ORDERED: INSULIN (LEVEMIR) 100 UNITS/ML UNITS SQ ONE (17:40)
[2023-03-17] MEDS: IBUPROFEN 400 MG TABLET (FP) PO PRN (19:09)
[2023-03-17] MEDS: CHLORHEXIDINE GLUCONATE 4% CLEANSER FOR DECOLONIZATION TP SCH (21:10)
[2023-03-17] MEDS: ATORVASTATIN CA 40 MG TABLET (FP) PO SCH (21:11)
[2023-03-17] MEDS: EZETIMIBE 10 MG TABLET (FP) PO SCH (21:11)
[2023-03-17 21:43] LABS: HEMATOCRIT 26.2 % (32.4-45.2); HEMOGLOBIN 8.4 GM/dL (10.7-15.3); MCH 22.1 pg (25.7-33.7); MCHC 32.2 g/dl (32.0-36.0); MEAN CELL VOLUME 68.6 fl (80-96); MEAN PLT VOLUME 7.6 fl (7.5-11.1); PLATELET COUNT 611 10^3/uL (134-434); RBC 3.82 M/mm3 (3.60-5.2); RDW 22.3 % (11.6-15.6); WHITE BLOOD COUNT 13.1 K/mm3 (4.0-10.0)
[2023-03-18] MEDS: ALBUTEROL SO4 0.083% IH SOL 2.5 MG/3 ML VIAL.NEB. NEB SCH ×6 (00:30→20:25)
[2023-03-18] MEDS: VANCOMYCIN/WATER 1250 MG 1,250 MG/250 ML BAG IVPB SCH (04:55)
[2023-03-18] MEDS: MEROPENEM 1 GM in DEXTROSE 5%-WATER 100 ML IVPB SCH ×2 (04:55→12:55)
[2023-03-18] MEDS: AMINO ACIDS 4.25%/D5W 1,000 ML IV SCH ×2 (04:55→21:20)
[2023-03-18] MEDS ORDERED: INSULIN (LEVEMIR) 100 UNITS/ML UNITS SQ ONE (05:45)
[2023-03-18] MEDS: GABAPENTIN 300 MG CAPSULE PO SCH ×3 (05:52→21:21)
[2023-03-18] MEDS: INSULIN SLIDING SCALE (NOVOLOG) 1 VIAL SQ SCH ×4 (06:23→21:22)
[2023-03-18] MEDS: INSULIN (NOVOLOG) ASPART 100 UNITS/ML 10ML VIAL SQ SCH ×3 (06:24→17:07)
[2023-03-18 06:54] LABS: BASO % 0.1 % (0-2.0); EOS % 1.2 % (0-4.5); HEMATOCRIT 25.1 % (32.4-45.2); HEMOGLOBIN 7.9 GM/dL (10.7-15.3); LYMPH % 12.5 % (8-40); MCH 22.2 pg (25.7-33.7); MCHC 31.6 g/dl (32.0-36.0); MEAN CELL VOLUME 70.1 fl (80-96); MEAN PLT VOLUME 7.8 fl (7.5-11.1); MONO % 5.8 % (3.8-10.2); NEUT % 80.4 % (42.8-82.8); PLATELET COUNT 662 10^3/uL (134-434); RBC 3.59 M/mm3 (3.60-5.2); RDW 21.8 % (11.6-15.6); WHITE BLOOD COUNT 13.3 K/mm3 (4.0-10.0)
[2023-03-18 07:09] LABS: POTASSIUM 3.6 mmol/L (3.5-5.1)
[2023-03-18 07:12] LABS: ALBUMIN 1.4 g/dl (3.4-5.0); BLOOD UREA NITROGEN 18.6 mg/dL (7-18); CALCIUM 8.2 mg/dL (8.5-10.1); MAGNESIUM 2.2 mg/dL (1.8-2.4)
[2023-03-18 07:15] LABS: CREATININE 0.6 mg/dL (0.55-1.3)
[2023-03-18 07:17] LABS: BILIRUBIN,TOTAL 0.5 mg/dL (0.2-1)
[2023-03-18] MEDS: ZIPRASIDONE 20 MG CAPSULE PO SCH ×2 (09:15→17:08)
[2023-03-18] MEDS: SERTRALINE HCL 50 MG TABLET (FP) PO SCH (09:17)
[2023-03-18] MEDS: ENOXAPARIN NA (PORCINE) 40 MG/0.4 ML DISP.SYRIN SQ SCH (09:17)
[2023-03-18] MEDS: BUDESONIDE/FORMETEROL FUMARATE 80/4.5 mcg INHALER IH SCH ×2 (09:18→21:21)
[2023-03-18] MEDS: INSULIN (LEVEMIR) 100 UNITS/ML UNITS SQ SCH ×2 (09:19→21:21)
[2023-03-18] MEDS: PANTOPRAZOLE 40 MG TABLET PO SCH (09:25)
[2023-03-18] MEDS: amLODIPine BESYLATE 5 MG TABLET (FP) PO SCH (09:25)
[2023-03-18] MEDS: ACETAMINOPHEN 1000 MG/100 ML BAG IVPB PRN ×2 (09:58→17:08)
[2023-03-18] MEDS: PIPERACILLIN/TAZOB 3.375 GM 3.375 GM in DEXTROSE 5%-WATER - 50 ML IVPB SCH (16:00)
[2023-03-18] MEDS: CHLORHEXIDINE GLUCONATE 4% CLEANSER FOR DECOLONIZATION TP SCH (21:21)
[2023-03-18] MEDS: EZETIMIBE 10 MG TABLET (FP) PO SCH (21:21)
[2023-03-18] MEDS: ATORVASTATIN CA 40 MG TABLET (FP) PO SCH (21:21)
[2023-03-18] MEDS: guaiFENesin 200 MG/10 ML 10 ML UNIT-DOSE CUPS PO PRN (21:22)
[2023-03-19] MEDS: PIPERACILLIN/TAZOB 3.375 GM 3.375 GM in DEXTROSE 5%-WATER - 50 ML IVPB SCH ×3 (01:12→17:33)
[2023-03-19] MEDS: ACETAMINOPHEN 1000 MG/100 ML BAG IVPB PRN (01:12)
[2023-03-19] MEDS: ALBUTEROL SO4 0.083% IH SOL 2.5 MG/3 ML VIAL.NEB. NEB SCH ×5 (04:00→15:02)
[2023-03-19] MEDS: INSULIN SLIDING SCALE (NOVOLOG) 1 VIAL SQ SCH ×4 (06:09→21:07)
[2023-03-19] MEDS: INSULIN (NOVOLOG) ASPART 100 UNITS/ML 10ML VIAL SQ SCH ×3 (06:09→17:30)
[2023-03-19] MEDS ORDERED: INSULIN (LEVEMIR) 100 UNITS/ML UNITS SQ ONE (06:11)
[2023-03-19] MEDS: GABAPENTIN 300 MG CAPSULE PO SCH ×3 (06:12→21:06)
[2023-03-19 07:19] LABS: BASO % 0.5 % (0-2.0); HEMATOCRIT 24.4 % (32.4-45.2); HEMOGLOBIN 7.7 GM/dL (10.7-15.3); LYMPH % 14.1 % (8-40); MCH 21.9 pg (25.7-33.7); MCHC 31.7 g/dl (32.0-36.0); MEAN CELL VOLUME 69.2 fl (80-96); MEAN PLT VOLUME 8.3 fl (7.5-11.1); MONO % 8.2 % (3.8-10.2); NEUT % 76.2 % (42.8-82.8); PLATELET COUNT 613 10^3/uL (134-434); RBC 3.52 M/mm3 (3.60-5.2); RDW 21.8 % (11.6-15.6); WHITE BLOOD COUNT 11.2 K/mm3 (4.0-10.0)
[2023-03-19 07:34] LABS: POTASSIUM 3.2 mmol/L (3.5-5.1)
[2023-03-19 07:46] LABS: BLOOD UREA NITROGEN 19.6 mg/dL (7-18); CALCIUM 8.4 mg/dL (8.5-10.1)
[2023-03-19 07:47] LABS: ALBUMIN 1.4 g/dl (3.4-5.0)
[2023-03-19 07:49] LABS: CREATININE 0.6 mg/dL (0.55-1.3); PHOSPHOROUS 2.7 mg/dL (2.5-4.9)
[2023-03-19 07:50] LABS: BILIRUBIN,TOTAL 0.4 mg/dL (0.2-1); TOT PROT 5.9 g/dl (6.4-8.2)
[2023-03-19] MEDS: ZIPRASIDONE 20 MG CAPSULE PO SCH ×2 (08:35→17:32)
[2023-03-19] MEDS: ENOXAPARIN NA (PORCINE) 40 MG/0.4 ML DISP.SYRIN SQ SCH (09:03)
[2023-03-19] MEDS: INSULIN (LEVEMIR) 100 UNITS/ML UNITS SQ SCH ×2 (09:04→21:06)
[2023-03-19] MEDS: SERTRALINE HCL 50 MG TABLET (FP) PO SCH (09:04)
[2023-03-19] MEDS: PANTOPRAZOLE 40 MG TABLET PO SCH (09:05)
[2023-03-19] MEDS: amLODIPine BESYLATE 5 MG TABLET (FP) PO SCH (09:05)
[2023-03-19] MEDS: BUDESONIDE/FORMETEROL FUMARATE 80/4.5 mcg INHALER IH SCH ×2 (09:05→21:07)
[2023-03-19] MEDS: AMINO ACIDS 4.25%/D5W 1,000 ML IV SCH ×2 (09:30→17:32)
[2023-03-19] MEDS: MULTIVIT INJ. ADULT COMBO WITH VIT K 1 COMBO 10 ML VIAL IV SCH (17:31)
[2023-03-19] MEDS: DRONABINOL 2.5 MG CAPSULE PO SCH (20:11)
[2023-03-19] MEDS ORDERED: INSULIN (NOVOLOG) ASPART 100 UNITS/ML 10ML VIAL ONE (20:31)
[2023-03-19] MEDS: ATORVASTATIN CA 40 MG TABLET (FP) PO SCH (21:06)
[2023-03-19] MEDS: EZETIMIBE 10 MG TABLET (FP) PO SCH (21:06)
[2023-03-19] MEDS: FAT EMULSION/OLIVE/SOY/PHOSPHO 250 ML IV SCH (21:07)
[2023-03-19] MEDS: CHLORHEXIDINE GLUCONATE 4% CLEANSER FOR DECOLONIZATION TP SCH (21:07)
[2023-03-19] MEDS ORDERED: FAT EMULSION/OLIVE/SOY (CLINOLIPID) 250 ML EMULSION IV SCH (22:00)
[2023-03-20] MEDS: PIPERACILLIN/TAZOB 3.375 GM 3.375 GM in DEXTROSE 5%-WATER - 50 ML IVPB SCH ×3 (02:38→18:34)
[2023-03-20] MEDS: AMINO ACIDS 4.25%/D5W 1,000 ML IV SCH ×2 (05:14→16:59)
[2023-03-20] MEDS: GABAPENTIN 300 MG CAPSULE PO SCH ×3 (05:14→21:20)
[2023-03-20] MEDS: INSULIN SLIDING SCALE (NOVOLOG) 1 VIAL SQ SCH ×4 (06:00→21:18)
[2023-03-20] MEDS: INSULIN (NOVOLOG) ASPART 100 UNITS/ML 10ML VIAL SQ SCH ×3 (06:00→18:33)
[2023-03-20 07:21] LABS: BASO % 0.2 % (0-2.0); EOS % 0.8 % (0-4.5); HEMATOCRIT 25.1 % (32.4-45.2); LYMPH % 15.7 % (8-40); MCHC 31.7 g/dl (32.0-36.0); MEAN CELL VOLUME 69.3 fl (80-96); MEAN PLT VOLUME 7.8 fl (7.5-11.1); MONO % 7.5 % (3.8-10.2); NEUT % 75.8 % (42.8-82.8); PLATELET COUNT 663 10^3/uL (134-434); RBC 3.63 M/mm3 (3.60-5.2); RDW 22.1 % (11.6-15.6); WHITE BLOOD COUNT 11.6 K/mm3 (4.0-10.0)
[2023-03-20 07:45] LABS: POTASSIUM 3.5 mmol/L (3.5-5.1)
[2023-03-20 07:48] LABS: ALBUMIN 1.4 g/dl (3.4-5.0); CALCIUM 8.6 mg/dL (8.5-10.1)
[2023-03-20 07:49] LABS: BLOOD UREA NITROGEN 19.2 mg/dL (7-18); MAGNESIUM 2.1 mg/dL (1.8-2.4)
[2023-03-20 07:52] LABS: CREATININE 0.5 mg/dL (0.55-1.3); PHOSPHOROUS 3.3 mg/dL (2.5-4.9)
[2023-03-20 07:53] LABS: BILIRUBIN,TOTAL 0.4 mg/dL (0.2-1); TOT PROT 6.1 g/dl (6.4-8.2)
[2023-03-20 08:10] LABS: ANISOCYTOSIS 3+; MACROCYTOSIS 0
[2023-03-20] MEDS: INSULIN (LEVEMIR) 100 UNITS/ML UNITS SQ SCH ×2 (12:37→21:18)
[2023-03-20] MEDS: ENOXAPARIN NA (PORCINE) 40 MG/0.4 ML DISP.SYRIN SQ SCH (12:37)
[2023-03-20] MEDS: ZIPRASIDONE 20 MG CAPSULE PO SCH ×2 (12:37→18:34)
[2023-03-20] MEDS: amLODIPine BESYLATE 5 MG TABLET (FP) PO SCH (12:38)
[2023-03-20] MEDS: DRONABINOL 2.5 MG CAPSULE PO SCH (12:38)
[2023-03-20] MEDS: SERTRALINE HCL 50 MG TABLET (FP) PO SCH (12:38)
[2023-03-20] MEDS: PANTOPRAZOLE 40 MG TABLET PO SCH (12:38)
[2023-03-20] MEDS: BUDESONIDE/FORMETEROL FUMARATE 80/4.5 mcg INHALER IH SCH ×2 (12:42→21:20)
[2023-03-20] MEDS: MULTIVIT INJ. ADULT COMBO WITH VIT K 1 COMBO 10 ML VIAL IV SCH (19:44)
[2023-03-20] MEDS: CHLORHEXIDINE GLUCONATE 4% CLEANSER FOR DECOLONIZATION TP SCH (21:20)
[2023-03-20] MEDS: EZETIMIBE 10 MG TABLET (FP) PO SCH (21:20)
[2023-03-20] MEDS: ATORVASTATIN CA 40 MG TABLET (FP) PO SCH (21:20)
[2023-03-20] MEDS: FAT EMULSION/OLIVE/SOY/PHOSPHO 250 ML IV SCH (21:55)
[2023-03-21] MEDS: PIPERACILLIN/TAZOB 3.375 GM 3.375 GM in DEXTROSE 5%-WATER - 50 ML IVPB SCH ×3 (02:39→17:02)
[2023-03-21] MEDS: GABAPENTIN 300 MG CAPSULE PO SCH ×3 (05:40→21:30)
[2023-03-21] MEDS: INSULIN (NOVOLOG) ASPART 100 UNITS/ML 10ML VIAL SQ SCH ×3 (06:08→17:02)
[2023-03-21] MEDS: AMINO ACIDS 4.25%/D5W 1,000 ML IV SCH ×2 (06:08→14:07)
[2023-03-21] MEDS: INSULIN SLIDING SCALE (NOVOLOG) 1 VIAL SQ SCH ×4 (06:08→21:31)
[2023-03-21 06:37] LABS: BASO % 0.2 % (0-2.0); EOS % 1.4 % (0-4.5); HEMATOCRIT 24.8 % (32.4-45.2); HEMOGLOBIN 7.9 GM/dL (10.7-15.3); LYMPH % 16.9 % (8-40); MCH 22.3 pg (25.7-33.7); MCHC 31.9 g/dl (32.0-36.0); MEAN CELL VOLUME 69.8 fl (80-96); MEAN PLT VOLUME 7.9 fl (7.5-11.1); MONO % 8.9 % (3.8-10.2); NEUT % 72.6 % (42.8-82.8); PLATELET COUNT 669 10^3/uL (134-434); RBC 3.55 M/mm3 (3.60-5.2); RDW 22.7 % (11.6-15.6); WHITE BLOOD COUNT 11.7 K/mm3 (4.0-10.0)
[2023-03-21 06:58] LABS: POTASSIUM 3.2 mmol/L (3.5-5.1)
[2023-03-21 07:00] LABS: CALCIUM 8.2 mg/dL (8.5-10.1)
[2023-03-21 07:01] LABS: ALBUMIN 1.4 g/dl (3.4-5.0); BLOOD UREA NITROGEN 19.5 mg/dL (7-18); MAGNESIUM 1.9 mg/dL (1.8-2.4)
[2023-03-21 07:04] LABS: CREATININE 0.5 mg/dL (0.55-1.3); PHOSPHOROUS 3.2 mg/dL (2.5-4.9)
[2023-03-21 07:05] LABS: BILIRUBIN,TOTAL 0.3 mg/dL (0.2-1)
[2023-03-21 07:06] LABS: TOT PROT 6.1 g/dl (6.4-8.2)
[2023-03-21] MEDS: ZIPRASIDONE 20 MG CAPSULE PO SCH ×2 (08:32→17:02)
[2023-03-21] MEDS: DRONABINOL 2.5 MG CAPSULE PO SCH (09:14)
[2023-03-21] MEDS: ENOXAPARIN NA (PORCINE) 40 MG/0.4 ML DISP.SYRIN SQ SCH (09:14)
[2023-03-21] MEDS: SERTRALINE HCL 50 MG TABLET (FP) PO SCH (09:14)
[2023-03-21] MEDS: amLODIPine BESYLATE 5 MG TABLET (FP) PO SCH (09:14)
[2023-03-21] MEDS: PANTOPRAZOLE 40 MG TABLET PO SCH (09:15)
[2023-03-21] MEDS: INSULIN (LEVEMIR) 100 UNITS/ML UNITS SQ SCH ×2 (09:15→21:30)
[2023-03-21] MEDS: BUDESONIDE/FORMETEROL FUMARATE 80/4.5 mcg INHALER IH SCH ×2 (09:16→21:31)
[2023-03-21] MEDS: MULTIVIT INJ. ADULT COMBO WITH VIT K 1 COMBO 10 ML VIAL IV SCH (14:41)
[2023-03-21] MEDS ORDERED: INSULIN (NOVOLOG) ASPART 100 UNITS/ML 10ML VIAL ONE (21:22)
[2023-03-21] MEDS: EZETIMIBE 10 MG TABLET (FP) PO SCH (21:30)
[2023-03-21] MEDS: ATORVASTATIN CA 40 MG TABLET (FP) PO SCH (21:30)
[2023-03-21] MEDS: FAT EMULSION/OLIVE/SOY/PHOSPHO 250 ML IV SCH (21:31)
[2023-03-21] MEDS: CHLORHEXIDINE GLUCONATE 4% CLEANSER FOR DECOLONIZATION TP SCH (21:31)
[2023-03-21 22:40] LABS: ALLENS TEST POSITIVE
[2023-03-21 22:45] LABS: ARTERIAL BLD GAS O2 SATURATION 96.3 % (95-98); ARTERIAL BLOOD GAS PO2 83.9 mmHg (80-100); ARTERIAL BLOOD GAS pH 7.421 (7.350-7.450)
[2023-03-22] MEDS: PIPERACILLIN/TAZOB 3.375 GM 3.375 GM in DEXTROSE 5%-WATER - 50 ML IVPB SCH ×3 (01:20→17:25)
[2023-03-22] MEDS: GABAPENTIN 300 MG CAPSULE PO SCH ×4 (02:04→21:14)
[2023-03-22] MEDS: ATORVASTATIN CA 40 MG TABLET (FP) PO SCH ×2 (02:04→21:14)
[2023-03-22] MEDS: BUDESONIDE/FORMETEROL FUMARATE 80/4.5 mcg INHALER IH SCH ×3 (02:04→21:15)
[2023-03-22] MEDS: EZETIMIBE 10 MG TABLET (FP) PO SCH ×2 (02:05→21:16)
[2023-03-22] MEDS: AMINO ACIDS 4.25%/D5W 1,000 ML IV SCH ×2 (03:00→14:34)
[2023-03-22 06:13] LABS: BASO % 0.3 % (0-2.0); EOS % 2.1 % (0-4.5); HEMATOCRIT 24.9 % (32.4-45.2); LYMPH % 22.7 % (8-40); MCH 22.3 pg (25.7-33.7); MCHC 31.9 g/dl (32.0-36.0); MEAN CELL VOLUME 69.9 fl (80-96); MEAN PLT VOLUME 7.6 fl (7.5-11.1); MONO % 8.7 % (3.8-10.2); NEUT % 66.2 % (42.8-82.8); PLATELET COUNT 577 10^3/uL (134-434); RBC 3.57 M/mm3 (3.60-5.2); WHITE BLOOD COUNT 9.4 K/mm3 (4.0-10.0)
[2023-03-22 06:37] LABS: POTASSIUM 3.5 mmol/L (3.5-5.1)
[2023-03-22 06:39] LABS: CALCIUM 8.4 mg/dL (8.5-10.1)
[2023-03-22 06:40] LABS: ALBUMIN 1.4 g/dl (3.4-5.0); BLOOD UREA NITROGEN 19.3 mg/dL (7-18)
[2023-03-22] MEDS: INSULIN SLIDING SCALE (NOVOLOG) 1 VIAL SQ SCH ×4 (06:41→21:15)
[2023-03-22] MEDS: INSULIN (NOVOLOG) ASPART 100 UNITS/ML 10ML VIAL SQ SCH ×3 (06:41→17:26)
[2023-03-22 06:43] LABS: CREATININE 0.7 mg/dL (0.55-1.3)
[2023-03-22 06:44] LABS: BILIRUBIN,TOTAL 0.3 mg/dL (0.2-1); TOT PROT 6.2 g/dl (6.4-8.2)
[2023-03-22] MEDS: ZIPRASIDONE 20 MG CAPSULE PO SCH ×2 (09:25→17:27)
[2023-03-22] MEDS: ENOXAPARIN NA (PORCINE) 40 MG/0.4 ML DISP.SYRIN SQ SCH (09:26)
[2023-03-22] MEDS: SERTRALINE HCL 50 MG TABLET (FP) PO SCH (09:26)
[2023-03-22] MEDS: amLODIPine BESYLATE 5 MG TABLET (FP) PO SCH (09:27)
[2023-03-22] MEDS: DRONABINOL 2.5 MG CAPSULE PO SCH (09:27)
[2023-03-22] MEDS: PANTOPRAZOLE 40 MG TABLET PO SCH (09:27)
[2023-03-22] MEDS: INSULIN (LEVEMIR) 100 UNITS/ML UNITS SQ SCH ×2 (09:28→21:15)
[2023-03-22] MEDS: MULTIVIT INJ. ADULT COMBO WITH VIT K 1 COMBO 10 ML VIAL IV SCH (14:35)
[2023-03-22] MEDS: IBUPROFEN 400 MG TABLET (FP) PO PRN (17:25)
[2023-03-22] MEDS: CHLORHEXIDINE GLUCONATE 4% CLEANSER FOR DECOLONIZATION TP SCH (21:14)
[2023-03-22] MEDS: FAT EMULSION/OLIVE/SOY/PHOSPHO 250 ML IV SCH (21:14)
[2023-03-22] MEDS: guaiFENesin 200 MG/10 ML 10 ML UNIT-DOSE CUPS PO PRN (21:15)
[2023-03-23] MEDS: AMINO ACIDS 4.25%/D5W 1,000 ML IV SCH ×2 (02:34→14:54)
[2023-03-23] MEDS: PIPERACILLIN/TAZOB 3.375 GM 3.375 GM in DEXTROSE 5%-WATER - 50 ML IVPB SCH ×3 (02:34→18:18)
[2023-03-23] MEDS: INSULIN SLIDING SCALE (NOVOLOG) 1 VIAL SQ SCH ×4 (06:15→22:58)
[2023-03-23] MEDS: INSULIN (NOVOLOG) ASPART 100 UNITS/ML 10ML VIAL SQ SCH ×3 (06:16→18:20)
[2023-03-23] MEDS: GABAPENTIN 300 MG CAPSULE PO SCH ×3 (06:19→22:58)
[2023-03-23 07:24] LABS: BASO % 0.2 % (0-2.0); EOS % 2.2 % (0-4.5); HEMATOCRIT 26.5 % (32.4-45.2); HEMOGLOBIN 8.6 GM/dL (10.7-15.3); LYMPH % 20.9 % (8-40); MCH 22.7 pg (25.7-33.7); MCHC 32.4 g/dl (32.0-36.0); MEAN CELL VOLUME 70.2 fl (80-96); MEAN PLT VOLUME 7.7 fl (7.5-11.1); MONO % 8.8 % (3.8-10.2); NEUT % 67.9 % (42.8-82.8); PLATELET COUNT 566 10^3/uL (134-434); RBC 3.78 M/mm3 (3.60-5.2); RDW 23.3 % (11.6-15.6); WHITE BLOOD COUNT 10.8 K/mm3 (4.0-10.0)
[2023-03-23 07:36] LABS: POTASSIUM 3.2 mmol/L (3.5-5.1)
[2023-03-23 07:38] LABS: CALCIUM 8.9 mg/dL (8.5-10.1)
[2023-03-23 07:39] LABS: ALBUMIN 1.5 g/dl (3.4-5.0); BLOOD UREA NITROGEN 18.8 mg/dL (7-18)
[2023-03-23 07:42] LABS: CREATININE 0.6 mg/dL (0.55-1.3)
[2023-03-23 07:43] LABS: TOT PROT 6.7 g/dl (6.4-8.2)
[2023-03-23 07:44] LABS: BILIRUBIN,TOTAL 0.3 mg/dL (0.2-1)
[2023-03-23] MEDS: ZIPRASIDONE 20 MG CAPSULE PO SCH ×2 (09:00→18:19)
[2023-03-23] MEDS: ENOXAPARIN NA (PORCINE) 40 MG/0.4 ML DISP.SYRIN SQ SCH (09:28)
[2023-03-23] MEDS: INSULIN (LEVEMIR) 100 UNITS/ML UNITS SQ SCH ×2 (09:29→22:59)
[2023-03-23] MEDS: amLODIPine BESYLATE 5 MG TABLET (FP) PO SCH (09:29)
[2023-03-23] MEDS: SERTRALINE HCL 50 MG TABLET (FP) PO SCH (09:29)
[2023-03-23] MEDS: PANTOPRAZOLE 40 MG TABLET PO SCH (09:37)
[2023-03-23] MEDS: IBUPROFEN 400 MG TABLET (FP) PO PRN (09:37)
[2023-03-23] MEDS: BUDESONIDE/FORMETEROL FUMARATE 80/4.5 mcg INHALER IH SCH ×2 (10:30→23:00)
[2023-03-23] MEDS: MULTIVIT INJ. ADULT COMBO WITH VIT K 1 COMBO 10 ML VIAL IV SCH (14:57)
[2023-03-23] MEDS: FAT EMULSION/OLIVE/SOY/PHOSPHO 250 ML IV SCH (22:56)
[2023-03-23] MEDS: CHLORHEXIDINE GLUCONATE 4% CLEANSER FOR DECOLONIZATION TP SCH (22:57)
[2023-03-23] MEDS: EZETIMIBE 10 MG TABLET (FP) PO SCH (22:58)
[2023-03-23] MEDS: ATORVASTATIN CA 40 MG TABLET (FP) PO SCH (22:58)
[2023-03-24] MEDS: PIPERACILLIN/TAZOB 3.375 GM 3.375 GM in DEXTROSE 5%-WATER - 50 ML IVPB SCH ×3 (01:52→17:00)
[2023-03-24] MEDS: AMINO ACIDS 4.25%/D5W 1,000 ML IV SCH ×4 (03:00→16:27)
[2023-03-24] MEDS: GABAPENTIN 300 MG CAPSULE PO SCH ×3 (07:00→22:27)
[2023-03-24] MEDS: INSULIN SLIDING SCALE (NOVOLOG) 1 VIAL SQ SCH ×4 (07:01→23:16)
[2023-03-24] MEDS: INSULIN (NOVOLOG) ASPART 100 UNITS/ML 10ML VIAL SQ SCH ×3 (07:03→17:00)
[2023-03-24 07:23] LABS: BASO % 0.4 % (0-2.0); EOS % 2.2 % (0-4.5); HEMATOCRIT 25.6 % (32.4-45.2); HEMOGLOBIN 8.3 GM/dL (10.7-15.3); LYMPH % 20.9 % (8-40); MCH 22.4 pg (25.7-33.7); MCHC 32.4 g/dl (32.0-36.0); MEAN CELL VOLUME 69.2 fl (80-96); MEAN PLT VOLUME 7.8 fl (7.5-11.1); MONO % 7.1 % (3.8-10.2); NEUT % 69.4 % (42.8-82.8); PLATELET COUNT 516 10^3/uL (134-434); RDW 22.9 % (11.6-15.6); WHITE BLOOD COUNT 11.8 K/mm3 (4.0-10.0)
[2023-03-24 07:53] LABS: POTASSIUM 3.7 mmol/L (3.5-5.1)
[2023-03-24 07:56] LABS: ALBUMIN 1.6 g/dl (3.4-5.0); CALCIUM 8.6 mg/dL (8.5-10.1); MAGNESIUM 1.9 mg/dL (1.8-2.4)
[2023-03-24 07:57] LABS: BLOOD UREA NITROGEN 19.4 mg/dL (7-18)
[2023-03-24 07:59] LABS: CREATININE 0.6 mg/dL (0.55-1.3); PHOSPHOROUS 4.1 mg/dL (2.5-4.9)
[2023-03-24 08:01] LABS: BILIRUBIN,TOTAL 0.4 mg/dL (0.2-1); TOT PROT 6.7 g/dl (6.4-8.2)
[2023-03-24 08:38] LABS: ANISOCYTOSIS 3+; MACROCYTOSIS 0
[2023-03-24] MEDS: PANTOPRAZOLE 40 MG TABLET PO SCH (10:09)
[2023-03-24] MEDS: IBUPROFEN 400 MG TABLET (FP) PO PRN (10:09)
[2023-03-24] MEDS: SERTRALINE HCL 50 MG TABLET (FP) PO SCH (10:09)
[2023-03-24] MEDS: amLODIPine BESYLATE 5 MG TABLET (FP) PO SCH (10:09)
[2023-03-24] MEDS: INSULIN (LEVEMIR) 100 UNITS/ML UNITS SQ SCH ×2 (10:14→23:19)
[2023-03-24] MEDS: ZIPRASIDONE 20 MG CAPSULE PO SCH ×2 (10:14→16:29)
[2023-03-24] MEDS: BUDESONIDE/FORMETEROL FUMARATE 80/4.5 mcg INHALER IH SCH ×2 (10:17→22:28)
[2023-03-24] MEDS: ENOXAPARIN NA (PORCINE) 40 MG/0.4 ML DISP.SYRIN SQ SCH (12:22)
[2023-03-24 12:45] LABS: CALCIUM 8.3 mg/dL (8.5-10.1)
[2023-03-24 12:46] LABS: ALBUMIN 1.4 g/dl (3.4-5.0); BLOOD UREA NITROGEN 18.1 mg/dL (7-18)
[2023-03-24 12:48] LABS: CREATININE 0.6 mg/dL (0.55-1.3)
[2023-03-24 12:50] LABS: TOT PROT 6.3 g/dl (6.4-8.2)
[2023-03-24 12:51] LABS: BILIRUBIN,TOTAL 0.4 mg/dL (0.2-1)
[2023-03-24] MEDS ORDERED: MIDAZOLAM HCL 2 MG/2 ML SINGLE DOSE VIAL ONE (13:53)
[2023-03-24] MEDS ORDERED: FENTANYL CITRATE/PF 50 MCG/ML VIAL ONE (13:53)
[2023-03-24] MEDS ORDERED: SODIUM CHLORIDE 500 ML IV ONE (15:20)
[2023-03-24] MEDS ORDERED: FENTANYL CITRATE/PF 50 MCG/ML VIAL IVPUSH ONE (15:25)
[2023-03-24 15:27] LABS: ARTERIAL BLD GAS O2 SATURATION 96.2 % (95-98); ARTERIAL BLOOD GAS BASE EXCESS 9.4 mmol/L (-2-2); ARTERIAL BLOOD GAS pH 7.446 (7.350-7.450)
[2023-03-24] MEDS ORDERED: INSULIN (NOVOLOG) ASPART 100 UNITS/ML 10ML VIAL ONE (17:05)
[2023-03-24] MEDS: MULTIVIT INJ. ADULT COMBO WITH VIT K 1 COMBO 10 ML VIAL IV SCH (17:16)
[2023-03-24] MEDS: ATORVASTATIN CA 40 MG TABLET (FP) PO SCH (22:27)
[2023-03-24] MEDS: FAT EMULSION/OLIVE/SOY/PHOSPHO 250 ML IV SCH (22:27)
[2023-03-24] MEDS: CHLORHEXIDINE GLUCONATE 4% CLEANSER FOR DECOLONIZATION TP SCH (22:27)
[2023-03-24] MEDS: EZETIMIBE 10 MG TABLET (FP) PO SCH (22:28)
[2023-03-25] MEDS ORDERED: INSULIN (LEVEMIR) 100 UNITS/ML UNITS SQ ONE (00:01)
[2023-03-25] MEDS: PIPERACILLIN/TAZOB 3.375 GM 3.375 GM in DEXTROSE 5%-WATER - 50 ML IVPB SCH ×3 (02:22→18:19)
[2023-03-25] MEDS: AMINO ACIDS 4.25%/D5W 1,000 ML IV SCH (04:05)
[2023-03-25] MEDS: GABAPENTIN 300 MG CAPSULE PO SCH ×3 (05:38→23:03)
[2023-03-25] MEDS: INSULIN SLIDING SCALE (NOVOLOG) 1 VIAL SQ SCH ×3 (06:55→23:17)
[2023-03-25] MEDS: INSULIN (NOVOLOG) ASPART 100 UNITS/ML 10ML VIAL SQ SCH ×2 (06:56→13:16)
[2023-03-25 07:51] LABS: BASO % 0.2 % (0-2.0); EOS % 3.6 % (0-4.5); HEMATOCRIT 25.8 % (32.4-45.2); HEMOGLOBIN 8.1 GM/dL (10.7-15.3); LYMPH % 18.4 % (8-40); MCHC 31.3 g/dl (32.0-36.0); MEAN CELL VOLUME 70.3 fl (80-96); MEAN PLT VOLUME 7.6 fl (7.5-11.1); MONO % 6.2 % (3.8-10.2); NEUT % 71.6 % (42.8-82.8); PLATELET COUNT 480 10^3/uL (134-434); RBC 3.67 M/mm3 (3.60-5.2); RDW 22.7 % (11.6-15.6); WHITE BLOOD COUNT 9.9 K/mm3 (4.0-10.0)
[2023-03-25 08:18] LABS: CHLORIDE 98 mmol/L (98-107); SODIUM 137 mmol/L (136-145)
[2023-03-25 08:20] LABS: BLOOD UREA NITROGEN 18.3 mg/dL (7-18); CALCIUM 8.3 mg/dL (8.5-10.1); CO2 33 mmol/L (21-32); GLUCOSE,RANDOM 175 mg/dL (74-106); MAGNESIUM 1.9 mg/dL (1.8-2.4)
[2023-03-25 08:22] LABS: ALBUMIN 1.4 g/dl (3.4-5.0)
[2023-03-25 08:24] LABS: SGPT/ALT 36 U/L (13-61)
[2023-03-25 08:25] LABS: BILIRUBIN,TOTAL 0.3 mg/dL (0.2-1); CREATININE 0.6 mg/dL (0.55-1.3); SGOT/AST 38 U/L (15-37); TOT PROT 6.4 g/dl (6.4-8.2)
[2023-03-25 08:26] LABS: ALK PHOS 65 U/L (45-117); ANION GAP 6 mmol/L (4-13); POTASSIUM 2.9 mmol/L (3.5-5.1)
[2023-03-25] MEDS: ZIPRASIDONE 20 MG CAPSULE PO SCH ×2 (08:45→17:48)
[2023-03-25] MEDS: SERTRALINE HCL 50 MG TABLET (FP) PO SCH (10:07)
[2023-03-25] MEDS: BUDESONIDE/FORMETEROL FUMARATE 80/4.5 mcg INHALER IH SCH ×2 (10:07→23:16)
[2023-03-25] MEDS: PANTOPRAZOLE 40 MG TABLET PO SCH (10:07)
[2023-03-25] MEDS: INSULIN (LEVEMIR) 100 UNITS/ML UNITS SQ SCH ×2 (10:52→23:03)
[2023-03-25] MEDS ORDERED: POTASSIUM CHLORIDE ORAL LIQUID 20 MEQ/15 ML PO ONE (12:45)
[2023-03-25] MEDS: KCL 10 MEQ IVPB 10 MEQ/100 ML INFUS.BAG IVPB SCH ×3 (13:15→15:24)
[2023-03-25] MEDS: amLODIPine BESYLATE 5 MG TABLET (FP) PO SCH (13:15)
[2023-03-25] MEDS: IBUPROFEN 400 MG TABLET (FP) PO PRN (16:22)
[2023-03-25] MEDS ORDERED: ALBUTEROL SO4 HFA INHALER IH PRN (17:01)
[2023-03-25] MEDS ORDERED: IBUPROFEN 400 MG TABLET (FP) PO PRN (17:01)
[2023-03-25] MEDS ORDERED: TRIMETHOBENZAMIDE HCL 200MG/2ML INJ IM PRN (17:01)
[2023-03-25] MEDS ORDERED: guaiFENesin 200 MG/10 ML 10 ML UNIT-DOSE CUPS PO PRN (17:01)
[2023-03-25] MEDS: MULTIVIT INJ. ADULT COMBO WITH VIT K 1 COMBO 10 ML VIAL IV SCH (18:20)
[2023-03-25] MEDS ORDERED: CHLORHEXIDINE GLUCONATE 4% CLEANSER FOR DECOLONIZATION TP SCH (22:00)
[2023-03-25] MEDS ORDERED: ATORVASTATIN CA 40 MG TABLET (FP) PO SCH (22:00)
[2023-03-25] MEDS: FAT EMULSION/OLIVE/SOY/PHOSPHO 250 ML IV SCH (23:00)
[2023-03-25] MEDS: EZETIMIBE 10 MG TABLET (FP) PO SCH (23:02)
[2023-03-26] MEDS: AMINO ACIDS 4.25%/D5W 1,000 ML IV SCH ×3 (01:25→15:08)
[2023-03-26] MEDS: PIPERACILLIN/TAZOB 3.375 GM 3.375 GM in DEXTROSE 5%-WATER - 50 ML IVPB SCH ×3 (02:50→17:34)
[2023-03-26] MEDS: GABAPENTIN 300 MG CAPSULE PO SCH ×4 (06:23→22:43)
[2023-03-26] MEDS: INSULIN (LEVEMIR) 100 UNITS/ML UNITS SQ SCH ×2 (06:24→22:49)
[2023-03-26] MEDS: INSULIN (NOVOLOG) ASPART 100 UNITS/ML 10ML VIAL SQ SCH ×4 (06:25→16:53)
[2023-03-26] MEDS: INSULIN SLIDING SCALE (NOVOLOG) 1 VIAL SQ SCH ×4 (06:26→23:00)
[2023-03-26 08:38] LABS: BASO % 0.2 % (0-2.0); EOS % 3.2 % (0-4.5); HEMATOCRIT 25.6 % (32.4-45.2); HEMOGLOBIN 8.2 GM/dL (10.7-15.3); LYMPH % 17.1 % (8-40); MCH 22.5 pg (25.7-33.7); MCHC 32.2 g/dl (32.0-36.0); MEAN CELL VOLUME 69.8 fl (80-96); MEAN PLT VOLUME 7.7 fl (7.5-11.1); MONO % 7.6 % (3.8-10.2); NEUT % 71.9 % (42.8-82.8); PLATELET COUNT 427 10^3/uL (134-434); RBC 3.67 M/mm3 (3.60-5.2); RDW 23.6 % (11.6-15.6); WHITE BLOOD COUNT 11.2 K/mm3 (4.0-10.0)
[2023-03-26 08:59] LABS: POTASSIUM 3.1 mmol/L (3.5-5.1)
[2023-03-26 09:18] LABS: CALCIUM 8.1 mg/dL (8.5-10.1)
[2023-03-26 09:19] LABS: ALBUMIN 1.5 g/dl (3.4-5.0); MAGNESIUM 1.8 mg/dL (1.8-2.4)
[2023-03-26 09:21] LABS: CREATININE 0.6 mg/dL (0.55-1.3); PHOSPHOROUS 2.5 mg/dL (2.5-4.9)
[2023-03-26 09:22] LABS: TOT PROT 6.8 g/dl (6.4-8.2)
[2023-03-26 09:23] LABS: BILIRUBIN,TOTAL 0.4 mg/dL (0.2-1)
[2023-03-26] MEDS: PANTOPRAZOLE 40 MG TABLET PO SCH (09:54)
[2023-03-26] MEDS: amLODIPine BESYLATE 5 MG TABLET (FP) PO SCH (09:54)
[2023-03-26] MEDS: SERTRALINE HCL 50 MG TABLET (FP) PO SCH (09:54)
[2023-03-26] MEDS: ZIPRASIDONE 20 MG CAPSULE PO SCH ×2 (10:39→18:48)
[2023-03-26] MEDS: BUDESONIDE/FORMETEROL FUMARATE 80/4.5 mcg INHALER IH SCH ×2 (10:39→23:01)
[2023-03-26] MEDS ORDERED: LACTATED RINGERS SOLUTION 1,000 ML/1,000 ML INFUS.BAG IV SCH (13:00)
[2023-03-26] MEDS ORDERED: POTASSIUM CHLORIDE ORAL LIQUID 20 MEQ/15 ML PO ONE (13:30)
[2023-03-26 14:26] LABS: RETICULOCYTES 3.17 % (0.5-1.5)
[2023-03-26] MEDS: MULTIVIT INJ. ADULT COMBO WITH VIT K 1 COMBO 10 ML VIAL IV SCH (15:07)
[2023-03-26] MEDS: LACTATED RINGERS SOLUTION 1,000 ML/1,000 ML INFUS.BAG IV SCH (15:09)
[2023-03-26] MEDS ORDERED: morphine CARPU-JECT 2 MG/1 ML DISP.SYRIN IVPUSH PRN (17:05)
[2023-03-26] MEDS ORDERED: ACETAMINOPHEN 650 MG SUPP.RECT RC PRN (17:13)
[2023-03-26] MEDS ORDERED: INSULIN (NOVOLOG) ASPART 100 UNITS/ML 10ML VIAL ONE (18:23)
[2023-03-26] MEDS: FAT EMULSION/OLIVE/SOY/PHOSPHO 250 ML IV SCH ×2 (22:02→22:52)
[2023-03-26] MEDS: ATORVASTATIN CA 80 MG TABLET (FP) PO SCH (22:43)
[2023-03-26] MEDS: EZETIMIBE 10 MG TABLET (FP) PO SCH (22:43)
[2023-03-27] MEDS: PIPERACILLIN/TAZOB 3.375 GM 3.375 GM in DEXTROSE 5%-WATER - 50 ML IVPB SCH ×3 (01:44→17:46)
[2023-03-27] MEDS: AMINO ACIDS 4.25%/D5W 1,000 ML IV SCH ×2 (02:45→17:02)
[2023-03-27] MEDS: GABAPENTIN 300 MG CAPSULE PO SCH ×3 (06:24→22:21)
[2023-03-27] MEDS: INSULIN (LEVEMIR) 100 UNITS/ML UNITS SQ SCH ×2 (07:24→22:41)
[2023-03-27] MEDS: INSULIN (NOVOLOG) ASPART 100 UNITS/ML 10ML VIAL SQ SCH ×3 (07:26→16:45)
[2023-03-27] MEDS: INSULIN SLIDING SCALE (NOVOLOG) 1 VIAL SQ SCH ×4 (07:26→22:42)
[2023-03-27 09:58] LABS: HEMATOCRIT 26.2 % (32.4-45.2); HEMOGLOBIN 8.4 GM/dL (10.7-15.3); MCH 22.1 pg (25.7-33.7); MCHC 32.1 g/dl (32.0-36.0); MEAN PLT VOLUME 7.8 fl (7.5-11.1); PLATELET COUNT 418 10^3/uL (134-434); RDW 23.8 % (11.6-15.6); WHITE BLOOD COUNT 9.2 K/mm3 (4.0-10.0)
[2023-03-27] MEDS ORDERED: ENOXAPARIN NA (PORCINE) 40 MG/0.4 ML DISP.SYRIN SQ SCH (10:00)
[2023-03-27 10:26] LABS: POTASSIUM 3.3 mmol/L (3.5-5.1)
[2023-03-27] MEDS: amLODIPine BESYLATE 5 MG TABLET (FP) PO SCH (10:26)
[2023-03-27] MEDS: PANTOPRAZOLE 40 MG TABLET PO SCH (10:26)
[2023-03-27] MEDS: SERTRALINE HCL 50 MG TABLET (FP) PO SCH (10:26)
[2023-03-27] MEDS: ENOXAPARIN NA (PORCINE) 40 MG/0.4 ML DISP.SYRIN SQ SCH (10:26)
[2023-03-27 10:27] LABS: CALCIUM 8.2 mg/dL (8.5-10.1)
[2023-03-27 10:28] LABS: ALBUMIN 1.6 g/dl (3.4-5.0); BLOOD UREA NITROGEN 17.5 mg/dL (7-18); MAGNESIUM 1.9 mg/dL (1.8-2.4)
[2023-03-27] MEDS: ZIPRASIDONE 20 MG CAPSULE PO SCH ×2 (10:28→18:56)
[2023-03-27 10:31] LABS: CREATININE 0.6 mg/dL (0.55-1.3); PHOSPHOROUS 2.8 mg/dL (2.5-4.9)
[2023-03-27 10:32] LABS: TOT PROT 6.8 g/dl (6.4-8.2)
[2023-03-27 10:33] LABS: BILIRUBIN,TOTAL 0.3 mg/dL (0.2-1)
[2023-03-27] MEDS: BUDESONIDE/FORMETEROL FUMARATE 80/4.5 mcg INHALER IH SCH ×2 (10:48→22:54)
[2023-03-27] MEDS ORDERED: POTASSIUM CHLORIDE ORAL LIQUID 20 MEQ/15 ML PO ONE (16:21)
[2023-03-27] MEDS: MULTIVIT INJ. ADULT COMBO WITH VIT K 1 COMBO 10 ML VIAL IV SCH (17:02)
[2023-03-27] MEDS ORDERED: POTASSIUM CHLORIDE TABS 20 MEQ TABLET.ER (FP) PO ONE (17:45)
[2023-03-27] MEDS: LACTATED RINGERS SOLUTION 1,000 ML/1,000 ML INFUS.BAG IV SCH (18:57)
[2023-03-27] MEDS: ATORVASTATIN CA 80 MG TABLET (FP) PO SCH (22:20)
[2023-03-27] MEDS: FAT EMULSION/OLIVE/SOY/PHOSPHO 250 ML IV SCH (22:20)
[2023-03-27] MEDS: MAGNESIUM OXIDE 400 MG TABLET (FP) PO SCH (22:21)
[2023-03-27] MEDS: EZETIMIBE 10 MG TABLET (FP) PO SCH (22:21)
[2023-03-28] MEDS: PIPERACILLIN/TAZOB 3.375 GM 3.375 GM in DEXTROSE 5%-WATER - 50 ML IVPB SCH ×3 (02:13→19:21)
[2023-03-28] MEDS: AMINO ACIDS 4.25%/D5W 1,000 ML IV SCH ×2 (03:19→17:53)
[2023-03-28] MEDS: GABAPENTIN 300 MG CAPSULE PO SCH ×3 (06:43→22:21)
[2023-03-28] MEDS: INSULIN SLIDING SCALE (NOVOLOG) 1 VIAL SQ SCH ×4 (06:49→22:41)
[2023-03-28] MEDS: INSULIN (NOVOLOG) ASPART 100 UNITS/ML 10ML VIAL SQ SCH ×3 (06:49→18:14)
[2023-03-28] MEDS: INSULIN (LEVEMIR) 100 UNITS/ML UNITS SQ SCH ×2 (06:58→22:41)
[2023-03-28] MEDS: ZIPRASIDONE 20 MG CAPSULE PO SCH ×2 (08:22→18:40)
[2023-03-28] MEDS: PANTOPRAZOLE 40 MG TABLET PO SCH (10:21)
[2023-03-28] MEDS: ENOXAPARIN NA (PORCINE) 40 MG/0.4 ML DISP.SYRIN SQ SCH (10:21)
[2023-03-28] MEDS: MAGNESIUM OXIDE 400 MG TABLET (FP) PO SCH ×2 (10:22→22:21)
[2023-03-28] MEDS: SERTRALINE HCL 50 MG TABLET (FP) PO SCH (10:22)
[2023-03-28] MEDS: amLODIPine BESYLATE 5 MG TABLET (FP) PO SCH (10:22)
[2023-03-28] MEDS: BUDESONIDE/FORMETEROL FUMARATE 80/4.5 mcg INHALER IH SCH ×2 (10:23→22:36)
[2023-03-28 10:54] LABS: HEMATOCRIT 25.1 % (32.4-45.2); MCH 22.1 pg (25.7-33.7); MCHC 31.8 g/dl (32.0-36.0); MEAN CELL VOLUME 69.6 fl (80-96); MEAN PLT VOLUME 8.1 fl (7.5-11.1); PLATELET COUNT 435 10^3/uL (134-434); RDW 23.5 % (11.6-15.6); WHITE BLOOD COUNT 8.8 K/mm3 (4.0-10.0)
[2023-03-28 10:57] LABS: POTASSIUM 3.7 mmol/L (3.5-5.1)
[2023-03-28 10:59] LABS: ALBUMIN 1.5 g/dl (3.4-5.0)
[2023-03-28 11:00] LABS: BLOOD UREA NITROGEN 16.1 mg/dL (7-18)
[2023-03-28 11:03] LABS: CREATININE 0.6 mg/dL (0.55-1.3); PHOSPHOROUS 3.2 mg/dL (2.5-4.9)
[2023-03-28 11:04] LABS: BILIRUBIN,TOTAL 0.2 mg/dL (0.2-1)
[2023-03-28 11:05] LABS: TOT PROT 6.4 g/dl (6.4-8.2)
[2023-03-28] MEDS ORDERED: INSULIN (NOVOLOG) ASPART 100 UNITS/ML 10ML VIAL ONE (11:05)
[2023-03-28] MEDS: MULTIVIT INJ. ADULT COMBO WITH VIT K 1 COMBO 10 ML VIAL IV SCH (17:54)
[2023-03-28] MEDS: SODIUM CHLORIDE 1,000 ML IV SCH (18:06)
[2023-03-28] MEDS ORDERED: CASPOFUNGIN ACETATE 70 MG in SODIUM CHLORIDE 250 ML IVPB ONE (21:00)
[2023-03-28] MEDS: EZETIMIBE 10 MG TABLET (FP) PO SCH (22:21)
[2023-03-28] MEDS: ATORVASTATIN CA 80 MG TABLET (FP) PO SCH (22:21)
[2023-03-29] MEDS: PIPERACILLIN/TAZOB 3.375 GM 3.375 GM in DEXTROSE 5%-WATER - 50 ML IVPB SCH ×3 (02:00→18:00)
[2023-03-29] MEDS: AMINO ACIDS 4.25%/D5W 1,000 ML IV SCH ×2 (03:35→14:51)
[2023-03-29] MEDS: FAT EMULSION/OLIVE/SOY/PHOSPHO 250 ML IV SCH ×2 (03:36→22:04)
[2023-03-29] MEDS: GABAPENTIN 300 MG CAPSULE PO SCH ×3 (06:44→21:02)
[2023-03-29] MEDS: INSULIN (NOVOLOG) ASPART 100 UNITS/ML 10ML VIAL SQ SCH ×4 (06:50→16:33)
[2023-03-29] MEDS: INSULIN SLIDING SCALE (NOVOLOG) 1 VIAL SQ SCH ×4 (06:56→21:16)
[2023-03-29] MEDS: INSULIN (LEVEMIR) 100 UNITS/ML UNITS SQ SCH ×2 (06:57→21:15)
[2023-03-29 09:28] LABS: HEMATOCRIT 25.7 % (32.4-45.2); HEMOGLOBIN 7.8 GM/dL (10.7-15.3); MCH 21.3 pg (25.7-33.7); MCHC 30.2 g/dl (32.0-36.0); MEAN CELL VOLUME 70.5 fl (80-96); MEAN PLT VOLUME 7.9 fl (7.5-11.1); PLATELET COUNT 428 10^3/uL (134-434); RBC 3.65 M/mm3 (3.60-5.2); RDW 24.8 % (11.6-15.6); WHITE BLOOD COUNT 8.4 K/mm3 (4.0-10.0)
[2023-03-29 09:35] LABS: POTASSIUM 3.4 mmol/L (3.5-5.1)
[2023-03-29 09:40] LABS: ALBUMIN 1.4 g/dl (3.4-5.0); BLOOD UREA NITROGEN 10.9 mg/dL (7-18); MAGNESIUM 1.9 mg/dL (1.8-2.4)
[2023-03-29 09:42] LABS: PHOSPHOROUS 3.5 mg/dL (2.5-4.9)
[2023-03-29 09:43] LABS: CREATININE 0.6 mg/dL (0.55-1.3)
[2023-03-29 09:44] LABS: BILIRUBIN,TOTAL 0.4 mg/dL (0.2-1); TOT PROT 6.4 g/dl (6.4-8.2)
[2023-03-29] MEDS: SERTRALINE HCL 50 MG TABLET (FP) PO SCH (10:19)
[2023-03-29] MEDS: MAGNESIUM OXIDE 400 MG TABLET (FP) PO SCH ×2 (10:19→21:02)
[2023-03-29] MEDS: ZIPRASIDONE 20 MG CAPSULE PO SCH ×2 (10:20→16:35)
[2023-03-29] MEDS: PANTOPRAZOLE 40 MG TABLET PO SCH (10:20)
[2023-03-29] MEDS: ENOXAPARIN NA (PORCINE) 40 MG/0.4 ML DISP.SYRIN SQ SCH (10:20)
[2023-03-29] MEDS: amLODIPine BESYLATE 5 MG TABLET (FP) PO SCH (10:20)
[2023-03-29] MEDS: BUDESONIDE/FORMETEROL FUMARATE 80/4.5 mcg INHALER IH SCH ×2 (11:57→21:16)
[2023-03-29] MEDS ORDERED: KCL 10 MEQ IVPB 10 MEQ/100 ML INFUS.BAG IVPB SCH (12:00)
[2023-03-29] MEDS: SODIUM CHLORIDE 1,000 ML IV SCH (16:14)
[2023-03-29] MEDS: MULTIVIT INJ. ADULT COMBO WITH VIT K 1 COMBO 10 ML VIAL IV SCH (16:23)
[2023-03-29] MEDS: CASPOFUNGIN ACETATE 50 MG in SODIUM CHLORIDE 250 ML IVPB SCH (20:30)
[2023-03-29] MEDS: EZETIMIBE 10 MG TABLET (FP) PO SCH (21:02)
[2023-03-29] MEDS: ATORVASTATIN CA 80 MG TABLET (FP) PO SCH (21:02)
[2023-03-30] MEDS: PIPERACILLIN/TAZOB 3.375 GM 3.375 GM in DEXTROSE 5%-WATER - 50 ML IVPB SCH (02:25)
[2023-03-30] MEDS: AMINO ACIDS 4.25%/D5W 1,000 ML IV SCH (02:30)
[2023-03-30] MEDS: VANCOMYCIN/WATER 1250 MG 1,250 MG/250 ML BAG IVPB SCH ×2 (04:45→18:03)
[2023-03-30] MEDS: INSULIN (LEVEMIR) 100 UNITS/ML UNITS SQ SCH ×2 (06:31→22:12)
[2023-03-30] MEDS: INSULIN (NOVOLOG) ASPART 100 UNITS/ML 10ML VIAL SQ SCH ×3 (06:34→18:04)
[2023-03-30] MEDS: INSULIN SLIDING SCALE (NOVOLOG) 1 VIAL SQ SCH ×4 (06:34→22:17)
[2023-03-30 10:11] LABS: HEMATOCRIT 25.7 % (32.4-45.2); MCH 22.1 pg (25.7-33.7); MCHC 31.1 g/dl (32.0-36.0); MEAN CELL VOLUME 71.1 fl (80-96); PLATELET COUNT 461 10^3/uL (134-434); RBC 3.62 M/mm3 (3.60-5.2); RDW 24.4 % (11.6-15.6); WHITE BLOOD COUNT 7.3 K/mm3 (4.0-10.0)
[2023-03-30 10:13] LABS: INR 1.49 (0.83-1.09); PROTHROMBIN TIME (PATIENT) 17.2 SEC (9.7-13.0)
[2023-03-30 10:14] LABS: ACTIVATED PTT 30.9 SECONDS (25.2-36.5)
[2023-03-30 10:19] LABS: POTASSIUM 3.5 mmol/L (3.5-5.1)
[2023-03-30 10:28] LABS: CALCIUM 8.2 mg/dL (8.5-10.1)
[2023-03-30 10:29] LABS: ALBUMIN 1.4 g/dl (3.4-5.0); BLOOD UREA NITROGEN 7.8 mg/dL (7-18); MAGNESIUM 1.9 mg/dL (1.8-2.4)
[2023-03-30 10:30] LABS: PHOSPHOROUS 3.6 mg/dL (2.5-4.9)
[2023-03-30 10:31] LABS: CREATININE 0.7 mg/dL (0.55-1.3)
[2023-03-30 10:32] LABS: BILIRUBIN,TOTAL 0.4 mg/dL (0.2-1); TOT PROT 6.4 g/dl (6.4-8.2)
[2023-03-30] MEDS: PANTOPRAZOLE 40 MG TABLET PO SCH (10:56)
[2023-03-30] MEDS: MEROPENEM 1 GM in DEXTROSE 5%-WATER 100 ML IVPB SCH ×2 (10:56→18:05)
[2023-03-30] MEDS: amLODIPine BESYLATE 5 MG TABLET (FP) PO SCH (10:56)
[2023-03-30] MEDS: SERTRALINE HCL 50 MG TABLET (FP) PO SCH (10:56)
[2023-03-30] MEDS: ZIPRASIDONE 20 MG CAPSULE PO SCH ×2 (10:57→16:41)
[2023-03-30] MEDS: ENOXAPARIN NA (PORCINE) 40 MG/0.4 ML DISP.SYRIN SQ SCH (10:57)
[2023-03-30] MEDS: BUDESONIDE/FORMETEROL FUMARATE 80/4.5 mcg INHALER IH SCH ×2 (10:58→22:13)
[2023-03-30 11:14] LABS: ANISOCYTOSIS 2+; MACROCYTOSIS 0
[2023-03-30] MEDS: GABAPENTIN 300 MG CAPSULE PO SCH ×3 (12:10→22:12)
[2023-03-30] MEDS: MULTIVIT INJ. ADULT COMBO WITH VIT K 1 COMBO 10 ML VIAL IV SCH (14:49)
[2023-03-30] MEDS ORDERED: INSULIN (NOVOLOG) ASPART 100 UNITS/ML 10ML VIAL ONE (21:06)
[2023-03-30] MEDS: EZETIMIBE 10 MG TABLET (FP) PO SCH (22:12)
[2023-03-30] MEDS: ATORVASTATIN CA 80 MG TABLET (FP) PO SCH (22:12)
[2023-03-30] MEDS: CASPOFUNGIN ACETATE 50 MG in SODIUM CHLORIDE 250 ML IVPB SCH (22:36)
[2023-03-31] MEDS: FAT EMULSION/OLIVE/SOY/PHOSPHO 250 ML IV SCH ×2 (00:41→21:52)
[2023-03-31] MEDS: MEROPENEM 1 GM in DEXTROSE 5%-WATER 100 ML IVPB SCH ×3 (02:44→17:00)
[2023-03-31] MEDS: VANCOMYCIN/WATER 1250 MG 1,250 MG/250 ML BAG IVPB SCH ×2 (06:01→17:00)
[2023-03-31] MEDS: GABAPENTIN 300 MG CAPSULE PO SCH ×3 (06:01→21:51)
[2023-03-31] MEDS: INSULIN SLIDING SCALE (NOVOLOG) 1 VIAL SQ SCH ×4 (06:08→22:06)
[2023-03-31] MEDS: INSULIN (NOVOLOG) ASPART 100 UNITS/ML 10ML VIAL SQ SCH ×3 (07:33→17:05)
[2023-03-31] MEDS: INSULIN (LEVEMIR) 100 UNITS/ML UNITS SQ SCH ×2 (07:33→22:06)
[2023-03-31 09:02] LABS: HEMATOCRIT 26.8 % (32.4-45.2); HEMOGLOBIN 8.3 GM/dL (10.7-15.3); MCH 22.1 pg (25.7-33.7); MCHC 30.9 g/dl (32.0-36.0); MEAN CELL VOLUME 71.5 fl (80-96); PLATELET COUNT 443 10^3/uL (134-434); RBC 3.75 M/mm3 (3.60-5.2); RDW 24.4 % (11.6-15.6); WHITE BLOOD COUNT 6.6 K/mm3 (4.0-10.0)
[2023-03-31 09:23] LABS: POTASSIUM 3.3 mmol/L (3.5-5.1)
[2023-03-31 09:25] LABS: BLOOD UREA NITROGEN 6.2 mg/dL (7-18)
[2023-03-31 09:26] LABS: ALBUMIN 1.4 g/dl (3.4-5.0); MAGNESIUM 1.9 mg/dL (1.8-2.4)
[2023-03-31 09:29] LABS: CREATININE 0.6 mg/dL (0.55-1.3); PHOSPHOROUS 3.3 mg/dL (2.5-4.9)
[2023-03-31 09:30] LABS: BILIRUBIN,TOTAL 0.3 mg/dL (0.2-1); TOT PROT 6.1 g/dl (6.4-8.2)
[2023-03-31] MEDS: ENOXAPARIN NA (PORCINE) 40 MG/0.4 ML DISP.SYRIN SQ SCH (10:11)
[2023-03-31] MEDS: ZIPRASIDONE 20 MG CAPSULE PO SCH ×2 (10:12→16:55)
[2023-03-31] MEDS: amLODIPine BESYLATE 5 MG TABLET (FP) PO SCH (10:13)
[2023-03-31] MEDS: PANTOPRAZOLE 40 MG TABLET PO SCH (10:13)
[2023-03-31] MEDS: SERTRALINE HCL 50 MG TABLET (FP) PO SCH (10:13)
[2023-03-31] MEDS: BUDESONIDE/FORMETEROL FUMARATE 80/4.5 mcg INHALER IH SCH ×2 (10:13→21:52)
[2023-03-31] MEDS: MULTIVIT INJ. ADULT COMBO WITH VIT K 1 COMBO 10 ML VIAL IV SCH (16:47)
[2023-03-31] MEDS ORDERED: MEROPENEM 1 GM VIAL (RESTRICTED TO ID) IVPB ONE (16:49)
[2023-03-31] MEDS: CASPOFUNGIN ACETATE 50 MG in SODIUM CHLORIDE 250 ML IVPB SCH (21:51)
[2023-03-31] MEDS: ATORVASTATIN CA 80 MG TABLET (FP) PO SCH (21:51)
[2023-03-31] MEDS: EZETIMIBE 10 MG TABLET (FP) PO SCH (21:51)
[2023-04-01] MEDS: MEROPENEM 1 GM in DEXTROSE 5%-WATER 100 ML IVPB SCH ×3 (01:10→18:09)
[2023-04-01] MEDS: VANCOMYCIN/WATER 1250 MG 1,250 MG/250 ML BAG IVPB SCH (05:20)
[2023-04-01] MEDS: GABAPENTIN 300 MG CAPSULE PO SCH ×3 (05:20→21:20)
[2023-04-01] MEDS: INSULIN (NOVOLOG) ASPART 100 UNITS/ML 10ML VIAL SQ SCH ×3 (06:18→18:07)
[2023-04-01] MEDS: INSULIN (LEVEMIR) 100 UNITS/ML UNITS SQ SCH ×2 (06:18→21:28)
[2023-04-01] MEDS: INSULIN SLIDING SCALE (NOVOLOG) 1 VIAL SQ SCH ×4 (06:19→21:22)
[2023-04-01 10:23] LABS: HEMATOCRIT 26.4 % (32.4-45.2); HEMOGLOBIN 8.4 GM/dL (10.7-15.3); MCH 22.3 pg (25.7-33.7); MCHC 31.7 g/dl (32.0-36.0); MEAN CELL VOLUME 70.2 fl (80-96); MEAN PLT VOLUME 8.4 fl (7.5-11.1); PLATELET COUNT 465 10^3/uL (134-434); RBC 3.77 M/mm3 (3.60-5.2); RDW 24.1 % (11.6-15.6); WHITE BLOOD COUNT 6.2 K/mm3 (4.0-10.0)
[2023-04-01] MEDS ORDERED: MIDAZOLAM HCL 2 MG/2 ML SINGLE DOSE VIAL ONE (10:26)
[2023-04-01] MEDS ORDERED: FENTANYL CITRATE/PF 50 MCG/ML VIAL ONE (10:26)
[2023-04-01 10:51] LABS: POTASSIUM 3.5 mmol/L (3.5-5.1)
[2023-04-01] MEDS ORDERED: FENTANYL CITRATE/PF 50 MCG/ML VIAL IVPUSH ONE (11:00)
[2023-04-01] MEDS ORDERED: MIDAZOLAM HCL 2 MG/2 ML SINGLE DOSE VIAL IVPUSH ONE (11:10)
[2023-04-01 11:50] LABS: BLOOD UREA NITROGEN 4.5 mg/dL (7-18); CALCIUM 7.6 mg/dL (8.5-10.1); MAGNESIUM 1.8 mg/dL (1.8-2.4)
[2023-04-01 11:51] LABS: ALBUMIN 1.4 g/dl (3.4-5.0)
[2023-04-01 11:53] LABS: CREATININE 0.5 mg/dL (0.55-1.3); PHOSPHOROUS 2.6 mg/dL (2.5-4.9)
[2023-04-01 11:54] LABS: BILIRUBIN,TOTAL 0.6 mg/dL (0.2-1)
[2023-04-01 11:55] LABS: TOT PROT 6.1 g/dl (6.4-8.2)
[2023-04-01] MEDS: amLODIPine BESYLATE 5 MG TABLET (FP) PO SCH (12:48)
[2023-04-01] MEDS: PANTOPRAZOLE 40 MG TABLET PO SCH (12:48)
[2023-04-01] MEDS: SERTRALINE HCL 50 MG TABLET (FP) PO SCH (12:48)
[2023-04-01] MEDS: ZIPRASIDONE 20 MG CAPSULE PO SCH ×2 (12:49→18:15)
[2023-04-01] MEDS: BUDESONIDE/FORMETEROL FUMARATE 80/4.5 mcg INHALER IH SCH ×2 (12:51→21:23)
[2023-04-01] MEDS: MULTIVIT INJ. ADULT COMBO WITH VIT K 1 COMBO 10 ML VIAL IV SCH (18:04)
[2023-04-01] MEDS: ENOXAPARIN NA (PORCINE) 40 MG/0.4 ML DISP.SYRIN SQ SCH (18:15)
[2023-04-01] MEDS ORDERED: ACETAMINOPHEN 325 MG TABLET (FP) PO PRN (18:58)
[2023-04-01] MEDS ORDERED: POTASSIUM CHLORIDE TABS 20 MEQ TABLET.ER (FP) PO ONE (19:42)
[2023-04-01] MEDS ORDERED: INSULIN (NOVOLOG) ASPART 100 UNITS/ML 10ML VIAL ONE (21:11)
[2023-04-01] MEDS: ATORVASTATIN CA 80 MG TABLET (FP) PO SCH (21:20)
[2023-04-01] MEDS: CASPOFUNGIN ACETATE 50 MG in SODIUM CHLORIDE 250 ML IVPB SCH (21:20)
[2023-04-01] MEDS: EZETIMIBE 10 MG TABLET (FP) PO SCH (21:23)
[2023-04-01] MEDS: FAT EMULSION/OLIVE/SOY/PHOSPHO 250 ML IV SCH (23:00)
[2023-04-02] MEDS: MEROPENEM 1 GM in DEXTROSE 5%-WATER 100 ML IVPB SCH ×3 (01:43→17:12)
[2023-04-02] MEDS ORDERED: morphine SULFATE IMMEDIATE RELEASE 30 MG TAB PO PRN (05:16)
[2023-04-02] MEDS ORDERED: POLYETHYLENE GLYCOL (HEALTHYLAX) 3350 17 GM PACKET PO PRN (05:20)
[2023-04-02] MEDS: GABAPENTIN 300 MG CAPSULE PO SCH ×3 (06:24→22:53)
[2023-04-02] MEDS: INSULIN (LEVEMIR) 100 UNITS/ML UNITS SQ SCH ×2 (06:28→23:03)
[2023-04-02] MEDS: INSULIN (NOVOLOG) ASPART 100 UNITS/ML 10ML VIAL SQ SCH ×3 (06:30→16:06)
[2023-04-02] MEDS: INSULIN SLIDING SCALE (NOVOLOG) 1 VIAL SQ SCH ×4 (06:31→22:53)
[2023-04-02] MEDS: SERTRALINE HCL 50 MG TABLET (FP) PO SCH (09:27)
[2023-04-02] MEDS: PANTOPRAZOLE 40 MG TABLET PO SCH (09:27)
[2023-04-02] MEDS: amLODIPine BESYLATE 5 MG TABLET (FP) PO SCH (09:27)
[2023-04-02] MEDS: ZIPRASIDONE 20 MG CAPSULE PO SCH ×2 (09:28→16:50)
[2023-04-02] MEDS: ENOXAPARIN NA (PORCINE) 40 MG/0.4 ML DISP.SYRIN SQ SCH (09:28)
[2023-04-02 09:33] LABS: HEMATOCRIT 25.7 % (32.4-45.2); MCH 22.2 pg (25.7-33.7); MCHC 31.2 g/dl (32.0-36.0); MEAN CELL VOLUME 71.1 fl (80-96); MEAN PLT VOLUME 8.2 fl (7.5-11.1); PLATELET COUNT 437 10^3/uL (134-434); RBC 3.62 M/mm3 (3.60-5.2); RDW 24.6 % (11.6-15.6); WHITE BLOOD COUNT 6.7 K/mm3 (4.0-10.0)
[2023-04-02 09:41] LABS: POTASSIUM 3.8 mmol/L (3.5-5.1)
[2023-04-02 09:48] LABS: ALBUMIN 1.4 g/dl (3.4-5.0); CALCIUM 7.7 mg/dL (8.5-10.1); MAGNESIUM 1.7 mg/dL (1.8-2.4)
[2023-04-02 09:49] LABS: BLOOD UREA NITROGEN 3.7 mg/dL (7-18)
[2023-04-02 09:51] LABS: CREATININE 0.6 mg/dL (0.55-1.3)
[2023-04-02 09:52] LABS: PHOSPHOROUS 2.1 mg/dL (2.5-4.9)
[2023-04-02 09:53] LABS: BILIRUBIN,TOTAL 0.8 mg/dL (0.2-1); TOT PROT 6.4 g/dl (6.4-8.2)
[2023-04-02] MEDS: BUDESONIDE/FORMETEROL FUMARATE 80/4.5 mcg INHALER IH SCH ×2 (11:03→22:54)
[2023-04-02] MEDS: MULTIVIT INJ. ADULT COMBO WITH VIT K 1 COMBO 10 ML VIAL IV SCH (18:36)
[2023-04-02] MEDS: EZETIMIBE 10 MG TABLET (FP) PO SCH (22:53)
[2023-04-02] MEDS: ATORVASTATIN CA 80 MG TABLET (FP) PO SCH (22:53)
[2023-04-02] MEDS: CASPOFUNGIN ACETATE 50 MG in SODIUM CHLORIDE 250 ML IVPB SCH (22:54)
[2023-04-03] MEDS: FAT EMULSION/OLIVE/SOY/PHOSPHO 250 ML IV SCH ×2 (00:12→21:59)
[2023-04-03] MEDS ORDERED: MEROPENEM 1 GM VIAL (RESTRICTED TO ID) IVPB ONE (02:35)
[2023-04-03] MEDS: MEROPENEM 1 GM in DEXTROSE 5%-WATER 100 ML IVPB SCH ×3 (02:47→17:59)
[2023-04-03] MEDS: INSULIN SLIDING SCALE (NOVOLOG) 1 VIAL SQ SCH ×4 (06:17→22:07)
[2023-04-03] MEDS: INSULIN (NOVOLOG) ASPART 100 UNITS/ML 10ML VIAL SQ SCH ×3 (06:18→17:00)
[2023-04-03] MEDS: GABAPENTIN 300 MG CAPSULE PO SCH ×3 (06:19→21:59)
[2023-04-03] MEDS: INSULIN (LEVEMIR) 100 UNITS/ML UNITS SQ SCH ×2 (06:19→22:07)
[2023-04-03] MEDS: amLODIPine BESYLATE 5 MG TABLET (FP) PO SCH (09:22)
[2023-04-03] MEDS: ENOXAPARIN NA (PORCINE) 40 MG/0.4 ML DISP.SYRIN SQ SCH (09:22)
[2023-04-03] MEDS: PANTOPRAZOLE 40 MG TABLET PO SCH (09:22)
[2023-04-03] MEDS: SERTRALINE HCL 50 MG TABLET (FP) PO SCH (09:22)
[2023-04-03] MEDS: ZIPRASIDONE 20 MG CAPSULE PO SCH ×2 (09:23→17:59)
[2023-04-03 10:11] LABS: HEMATOCRIT 26.7 % (32.4-45.2); HEMOGLOBIN 8.3 GM/dL (10.7-15.3); MCH 22.1 pg (25.7-33.7); MCHC 31.1 g/dl (32.0-36.0); MEAN CELL VOLUME 71.1 fl (80-96); MEAN PLT VOLUME 8.3 fl (7.5-11.1); PLATELET COUNT 398 10^3/uL (134-434); RBC 3.75 M/mm3 (3.60-5.2); RDW 25.3 % (11.6-15.6); WHITE BLOOD COUNT 6.8 K/mm3 (4.0-10.0)
[2023-04-03] MEDS: BUDESONIDE/FORMETEROL FUMARATE 80/4.5 mcg INHALER IH SCH ×2 (10:13→22:00)
[2023-04-03 10:24] LABS: POTASSIUM 3.5 mmol/L (3.5-5.1)
[2023-04-03 10:35] LABS: CALCIUM 7.8 mg/dL (8.5-10.1)
[2023-04-03 10:36] LABS: ALBUMIN 1.4 g/dl (3.4-5.0); BLOOD UREA NITROGEN 4.2 mg/dL (7-18); MAGNESIUM 1.9 mg/dL (1.8-2.4)
[2023-04-03 10:39] LABS: CREATININE 0.4 mg/dL (0.55-1.3); PHOSPHOROUS 2.5 mg/dL (2.5-4.9)
[2023-04-03 10:40] LABS: BILIRUBIN,TOTAL 0.4 mg/dL (0.2-1); TOT PROT 6.4 g/dl (6.4-8.2)
[2023-04-03] MEDS: ATORVASTATIN CA 80 MG TABLET (FP) PO SCH (21:59)
[2023-04-03] MEDS: EZETIMIBE 10 MG TABLET (FP) PO SCH (21:59)
[2023-04-04] MEDS: MEROPENEM 1 GM in DEXTROSE 5%-WATER 100 ML IVPB SCH ×3 (01:32→17:11)
[2023-04-04] MEDS: GABAPENTIN 300 MG CAPSULE PO SCH ×3 (06:13→22:08)
[2023-04-04] MEDS: INSULIN (NOVOLOG) ASPART 100 UNITS/ML 10ML VIAL SQ SCH ×3 (06:15→16:39)
[2023-04-04] MEDS: INSULIN SLIDING SCALE (NOVOLOG) 1 VIAL SQ SCH ×4 (06:15→22:09)
[2023-04-04] MEDS: INSULIN (LEVEMIR) 100 UNITS/ML UNITS SQ SCH ×2 (07:39→22:08)
[2023-04-04] MEDS ORDERED: INSULIN (LEVEMIR) 100 UNITS/ML UNITS SQ ONE (07:41)
[2023-04-04] MEDS ORDERED: MEROPENEM 1 GM VIAL (RESTRICTED TO ID) IVPB ONE (08:32)
[2023-04-04] MEDS: ZIPRASIDONE 20 MG CAPSULE PO SCH ×2 (08:43→17:12)
[2023-04-04 09:29] LABS: HEMATOCRIT 26.4 % (32.4-45.2); HEMOGLOBIN 8.1 GM/dL (10.7-15.3); MCH 21.9 pg (25.7-33.7); MCHC 30.8 g/dl (32.0-36.0); MEAN CELL VOLUME 71.1 fl (80-96); MEAN PLT VOLUME 8.5 fl (7.5-11.1); PLATELET COUNT 365 10^3/uL (134-434); RBC 3.71 M/mm3 (3.60-5.2); RDW 25.2 % (11.6-15.6); WHITE BLOOD COUNT 7.1 K/mm3 (4.0-10.0)
[2023-04-04] MEDS: PANTOPRAZOLE 40 MG TABLET PO SCH (09:37)
[2023-04-04] MEDS: amLODIPine BESYLATE 5 MG TABLET (FP) PO SCH (09:37)
[2023-04-04] MEDS: ENOXAPARIN NA (PORCINE) 40 MG/0.4 ML DISP.SYRIN SQ SCH (09:37)
[2023-04-04] MEDS: SERTRALINE HCL 50 MG TABLET (FP) PO SCH (09:37)
[2023-04-04] MEDS: BUDESONIDE/FORMETEROL FUMARATE 80/4.5 mcg INHALER IH SCH ×2 (09:38→22:09)
[2023-04-04 09:46] LABS: POTASSIUM 3.6 mmol/L (3.5-5.1)
[2023-04-04 09:55] LABS: CALCIUM 7.9 mg/dL (8.5-10.1)
[2023-04-04 09:56] LABS: ALBUMIN 1.4 g/dl (3.4-5.0); BLOOD UREA NITROGEN 3.4 mg/dL (7-18); MAGNESIUM 1.8 mg/dL (1.8-2.4)
[2023-04-04 09:58] LABS: PHOSPHOROUS 2.3 mg/dL (2.5-4.9)
[2023-04-04 09:59] LABS: CREATININE 0.4 mg/dL (0.55-1.3)
[2023-04-04 10:00] LABS: BILIRUBIN,TOTAL 0.3 mg/dL (0.2-1); TOT PROT 6.5 g/dl (6.4-8.2)
[2023-04-04] MEDS: NAPH,MB-DB/K PH,MBDB POWDER PACKET PO SCH ×2 (14:26→22:07)
[2023-04-04] MEDS: EZETIMIBE 10 MG TABLET (FP) PO SCH (22:08)
[2023-04-04] MEDS: ATORVASTATIN CA 80 MG TABLET (FP) PO SCH (22:08)
[2023-04-04] MEDS: FAT EMULSION/OLIVE/SOY/PHOSPHO 250 ML IV SCH (23:03)
[2023-04-04 23:23] LABS: EPI CELLS 13 /uL (0-25.1); HYALINE CASTS 0 /uL (0-3.1); PH,URINE 6.5 (5.0-8.0); URINE APPEARANCE CLEAR; URINE BACTERIA 2 /uL (0-1359); URINE BILIRUBIN NEGATIVE (NEGATIVE); URINE COLOR YELLOW; URINE GLUCOSE (UA) NEGATIVE (NEGATIVE); URINE KETONE NEGATIVE (NEGATIVE); URINE LEUK ESTERASE NEGATIVE (NEGATIVE); URINE NITRITE NEGATIVE (NEGATIVE); URINE PROTEIN TRACE (NEGATIVE); URINE RBC 27 /uL (0-23.9); URINE UROBILINOGEN 0.2 mg/dL (0.2-1.0); URINE WBC 10 /uL (0-25.8)
[2023-04-05] MEDS: MEROPENEM 1 GM in DEXTROSE 5%-WATER 100 ML IVPB SCH ×3 (02:04→17:34)
[2023-04-05] MEDS: INSULIN (NOVOLOG) ASPART 100 UNITS/ML 10ML VIAL SQ SCH ×3 (07:08→16:54)
[2023-04-05] MEDS: GABAPENTIN 300 MG CAPSULE PO SCH ×3 (07:08→21:21)
[2023-04-05] MEDS: INSULIN (LEVEMIR) 100 UNITS/ML UNITS SQ SCH ×2 (07:08→21:21)
[2023-04-05] MEDS: INSULIN SLIDING SCALE (NOVOLOG) 1 VIAL SQ SCH ×4 (07:08→21:20)
[2023-04-05] MEDS: ZIPRASIDONE 20 MG CAPSULE PO SCH ×2 (07:54→17:34)
[2023-04-05 08:39] LABS: BASO % 0.7 % (0-2.0); EOS % 3.3 % (0-4.5); HEMATOCRIT 26.1 % (32.4-45.2); HEMOGLOBIN 8.6 GM/dL (10.7-15.3); LYMPH % 35.6 % (8-40); MCHC 32.8 g/dl (32.0-36.0); MEAN PLT VOLUME 8.4 fl (7.5-11.1); MONO % 11.2 % (3.8-10.2); NEUT % 49.2 % (42.8-82.8); PLATELET COUNT 361 10^3/uL (134-434); RBC 3.72 M/mm3 (3.60-5.2); RDW 25.7 % (11.6-15.6)
[2023-04-05 08:57] LABS: POTASSIUM 3.7 mmol/L (3.5-5.1)
[2023-04-05 08:58] LABS: CALCIUM 7.9 mg/dL (8.5-10.1)
[2023-04-05 08:59] LABS: BLOOD UREA NITROGEN 4.3 mg/dL (7-18)
[2023-04-05 09:02] LABS: CREATININE 0.4 mg/dL (0.55-1.3); PHOSPHOROUS 2.9 mg/dL (2.5-4.9)
[2023-04-05] MEDS: SERTRALINE HCL 50 MG TABLET (FP) PO SCH (10:00)
[2023-04-05] MEDS: amLODIPine BESYLATE 5 MG TABLET (FP) PO SCH (10:00)
[2023-04-05] MEDS: PANTOPRAZOLE 40 MG TABLET PO SCH (10:00)
[2023-04-05] MEDS: ENOXAPARIN NA (PORCINE) 40 MG/0.4 ML DISP.SYRIN SQ SCH (10:01)
[2023-04-05] MEDS: BUDESONIDE/FORMETEROL FUMARATE 80/4.5 mcg INHALER IH SCH ×2 (10:02→21:20)
[2023-04-05 11:10] LABS: ANISOCYTOSIS 3+; MACROCYTOSIS 0; TARGET CELLS 1+
[2023-04-05] MEDS: FAT EMULSION/OLIVE/SOY/PHOSPHO 250 ML IV SCH (21:21)
[2023-04-05] MEDS: EZETIMIBE 10 MG TABLET (FP) PO SCH (21:21)
[2023-04-05] MEDS: ATORVASTATIN CA 80 MG TABLET (FP) PO SCH (21:21)
[2023-04-06] MEDS: MEROPENEM 1 GM in DEXTROSE 5%-WATER 100 ML IVPB SCH ×2 (02:16→10:53)
[2023-04-06] MEDS: INSULIN (NOVOLOG) ASPART 100 UNITS/ML 10ML VIAL SQ SCH ×3 (06:44→16:39)
[2023-04-06] MEDS: INSULIN (LEVEMIR) 100 UNITS/ML UNITS SQ SCH ×2 (06:45→21:47)
[2023-04-06] MEDS: GABAPENTIN 300 MG CAPSULE PO SCH ×3 (06:45→21:43)
[2023-04-06] MEDS: INSULIN SLIDING SCALE (NOVOLOG) 1 VIAL SQ SCH ×4 (07:38→21:47)
[2023-04-06] MEDS: PANTOPRAZOLE 40 MG TABLET PO SCH (10:52)
[2023-04-06] MEDS: SERTRALINE HCL 50 MG TABLET (FP) PO SCH (10:52)
[2023-04-06] MEDS: ZIPRASIDONE 20 MG CAPSULE PO SCH ×2 (10:52→18:46)
[2023-04-06] MEDS: ENOXAPARIN NA (PORCINE) 40 MG/0.4 ML DISP.SYRIN SQ SCH (10:52)
[2023-04-06] MEDS: BUDESONIDE/FORMETEROL FUMARATE 80/4.5 mcg INHALER IH SCH ×2 (10:53→21:44)
[2023-04-06] MEDS: amLODIPine BESYLATE 5 MG TABLET (FP) PO SCH (10:53)
[2023-04-06 11:40] LABS: HEMATOCRIT 27.3 % (32.4-45.2); HEMOGLOBIN 8.4 GM/dL (10.7-15.3); MCH 22.1 pg (25.7-33.7); MCHC 30.9 g/dl (32.0-36.0); MEAN CELL VOLUME 71.6 fl (80-96); MEAN PLT VOLUME 8.6 fl (7.5-11.1); PLATELET COUNT 383 10^3/uL (134-434); RBC 3.81 M/mm3 (3.60-5.2); RDW 25.8 % (11.6-15.6); WHITE BLOOD COUNT 7.1 K/mm3 (4.0-10.0)
[2023-04-06 11:59] LABS: POTASSIUM 4.2 mmol/L (3.5-5.1)
[2023-04-06 12:00] LABS: POTASSIUM 4.2 mmol/L (3.5-5.1)
[2023-04-06 12:02] LABS: CALCIUM 7.9 mg/dL (8.5-10.1)
[2023-04-06 12:03] LABS: ALBUMIN 1.4 g/dl (3.4-5.0)
[2023-04-06 12:04] LABS: MAGNESIUM 1.8 mg/dL (1.8-2.4)
[2023-04-06 12:06] LABS: CREATININE 0.5 mg/dL (0.55-1.3); PHOSPHOROUS 2.8 mg/dL (2.5-4.9)
[2023-04-06 12:07] LABS: BILIRUBIN,TOTAL 0.2 mg/dL (0.2-1); TOT PROT 6.5 g/dl (6.4-8.2)
[2023-04-06 12:14] LABS: BLOOD UREA NITROGEN 3.9 mg/dL (7-18)
[2023-04-06 12:17] LABS: CREATININE 0.5 mg/dL (0.55-1.3)
[2023-04-06] MEDS: AMOX TR/POT CLAV 875MG/125MG TABLETS (FP) PO SCH (18:46)
[2023-04-06] MEDS: FAT EMULSION/OLIVE/SOY/PHOSPHO 250 ML IV SCH (21:35)
[2023-04-06] MEDS: EZETIMIBE 10 MG TABLET (FP) PO SCH (21:43)
[2023-04-06] MEDS: ATORVASTATIN CA 80 MG TABLET (FP) PO SCH (21:43)
[2023-04-07] MEDS: levoFLOXacin 750 MG TABLET PO SCH (06:11)
[2023-04-07] MEDS: GABAPENTIN 300 MG CAPSULE PO SCH ×3 (06:11→22:15)
[2023-04-07] MEDS: INSULIN SLIDING SCALE (NOVOLOG) 1 VIAL SQ SCH ×4 (06:17→22:21)
[2023-04-07] MEDS: INSULIN (NOVOLOG) ASPART 100 UNITS/ML 10ML VIAL SQ SCH ×3 (06:17→16:30)
[2023-04-07] MEDS: INSULIN (LEVEMIR) 100 UNITS/ML UNITS SQ SCH ×2 (06:17→22:21)
[2023-04-07] MEDS: ZIPRASIDONE 20 MG CAPSULE PO SCH ×2 (08:40→16:33)
[2023-04-07] MEDS: AMOX TR/POT CLAV 875MG/125MG TABLETS (FP) PO SCH ×2 (08:40→16:33)
[2023-04-07] MEDS: PANTOPRAZOLE 40 MG TABLET PO SCH (09:16)
[2023-04-07] MEDS: ENOXAPARIN NA (PORCINE) 40 MG/0.4 ML DISP.SYRIN SQ SCH (09:16)
[2023-04-07] MEDS: amLODIPine BESYLATE 5 MG TABLET (FP) PO SCH (09:16)
[2023-04-07] MEDS: SERTRALINE HCL 50 MG TABLET (FP) PO SCH (09:16)
[2023-04-07] MEDS: BUDESONIDE/FORMETEROL FUMARATE 80/4.5 mcg INHALER IH SCH ×2 (09:17→22:21)
[2023-04-07 10:42] LABS: HEMATOCRIT 27.8 % (32.4-45.2); HEMOGLOBIN 8.7 GM/dL (10.7-15.3); MCH 22.2 pg (25.7-33.7); MCHC 31.2 g/dl (32.0-36.0); MEAN CELL VOLUME 71.4 fl (80-96); MEAN PLT VOLUME 8.7 fl (7.5-11.1); PLATELET COUNT 378 10^3/uL (134-434); RBC 3.89 M/mm3 (3.60-5.2); RDW 25.8 % (11.6-15.6); WHITE BLOOD COUNT 6.6 K/mm3 (4.0-10.0)
[2023-04-07 11:00] LABS: POTASSIUM 4.2 mmol/L (3.5-5.1)
[2023-04-07 11:07] LABS: ALBUMIN 1.5 g/dl (3.4-5.0); BLOOD UREA NITROGEN 3.7 mg/dL (7-18); CALCIUM 8.2 mg/dL (8.5-10.1)
[2023-04-07 11:11] LABS: BILIRUBIN,TOTAL 0.3 mg/dL (0.2-1); CREATININE 0.5 mg/dL (0.55-1.3); PHOSPHOROUS 3.1 mg/dL (2.5-4.9)
[2023-04-07 11:12] LABS: TOT PROT 6.8 g/dl (6.4-8.2)
[2023-04-07] MEDS: ATORVASTATIN CA 80 MG TABLET (FP) PO SCH (22:14)
[2023-04-07] MEDS: EZETIMIBE 10 MG TABLET (FP) PO SCH (22:15)
[2023-04-07] MEDS: FAT EMULSION/OLIVE/SOY/PHOSPHO 250 ML IV SCH (22:48)
[2023-04-08] MEDS: GABAPENTIN 300 MG CAPSULE PO SCH ×3 (06:20→22:32)
[2023-04-08] MEDS: INSULIN (LEVEMIR) 100 UNITS/ML UNITS SQ SCH ×2 (06:20→22:32)
[2023-04-08] MEDS: levoFLOXacin 750 MG TABLET PO SCH (06:20)
[2023-04-08] MEDS: INSULIN SLIDING SCALE (NOVOLOG) 1 VIAL SQ SCH ×4 (06:22→22:35)
[2023-04-08] MEDS: INSULIN (NOVOLOG) ASPART 100 UNITS/ML 10ML VIAL SQ SCH ×3 (06:28→17:38)
[2023-04-08] MEDS: PANTOPRAZOLE 40 MG TABLET PO SCH (09:10)
[2023-04-08] MEDS: SERTRALINE HCL 50 MG TABLET (FP) PO SCH (09:10)
[2023-04-08] MEDS: ENOXAPARIN NA (PORCINE) 40 MG/0.4 ML DISP.SYRIN SQ SCH (09:10)
[2023-04-08] MEDS: amLODIPine BESYLATE 5 MG TABLET (FP) PO SCH (09:10)
[2023-04-08] MEDS: AMOX TR/POT CLAV 875MG/125MG TABLETS (FP) PO SCH ×2 (09:10→16:48)
[2023-04-08] MEDS: BUDESONIDE/FORMETEROL FUMARATE 80/4.5 mcg INHALER IH SCH ×2 (09:12→22:38)
[2023-04-08 10:38] LABS: HEMATOCRIT 26.1 % (32.4-45.2); HEMOGLOBIN 8.1 GM/dL (10.7-15.3); MCH 22.5 pg (25.7-33.7); MCHC 30.9 g/dl (32.0-36.0); MEAN CELL VOLUME 72.8 fl (80-96); MEAN PLT VOLUME 8.5 fl (7.5-11.1); PLATELET COUNT 358 10^3/uL (134-434); RBC 3.59 M/mm3 (3.60-5.2); RDW 25.8 % (11.6-15.6); WHITE BLOOD COUNT 6.7 K/mm3 (4.0-10.0)
[2023-04-08 11:02] LABS: POTASSIUM 4.2 mmol/L (3.5-5.1)
[2023-04-08 11:12] LABS: ALBUMIN 1.6 g/dl (3.4-5.0); BLOOD UREA NITROGEN 4.6 mg/dL (7-18); CALCIUM 8.4 mg/dL (8.5-10.1)
[2023-04-08 11:13] LABS: MAGNESIUM 1.9 mg/dL (1.8-2.4)
[2023-04-08] MEDS: ZIPRASIDONE 20 MG CAPSULE PO SCH ×2 (11:13→17:39)
[2023-04-08 11:16] LABS: BILIRUBIN,TOTAL 0.3 mg/dL (0.2-1); CREATININE 0.6 mg/dL (0.55-1.3); TOT PROT 6.8 g/dl (6.4-8.2)
[2023-04-08 11:18] LABS: PHOSPHOROUS 3.1 mg/dL (2.5-4.9)
[2023-04-08] MEDS: ATORVASTATIN CA 80 MG TABLET (FP) PO SCH (22:32)
[2023-04-08] MEDS: EZETIMIBE 10 MG TABLET (FP) PO SCH (22:32)
[2023-04-09] MEDS: levoFLOXacin 750 MG TABLET PO SCH (06:26)
[2023-04-09] MEDS: GABAPENTIN 300 MG CAPSULE PO SCH ×3 (06:26→21:18)
[2023-04-09] MEDS: INSULIN (NOVOLOG) ASPART 100 UNITS/ML 10ML VIAL SQ SCH ×3 (06:31→17:35)
[2023-04-09] MEDS: INSULIN SLIDING SCALE (NOVOLOG) 1 VIAL SQ SCH ×4 (06:31→21:30)
[2023-04-09] MEDS: INSULIN (LEVEMIR) 100 UNITS/ML UNITS SQ SCH ×2 (06:32→21:27)
[2023-04-09 06:39] VITALS: RESP 20
[2023-04-09 09:09] LABS: HEMATOCRIT 26.6 % (32.4-45.2); HEMOGLOBIN 8.1 GM/dL (10.7-15.3); MCH 22.2 pg (25.7-33.7); MCHC 30.6 g/dl (32.0-36.0); MEAN CELL VOLUME 72.5 fl (80-96); MEAN PLT VOLUME 7.6 fl (7.5-11.1); PLATELET COUNT 356 10^3/uL (134-434); RBC 3.67 M/mm3 (3.60-5.2); RDW 26.1 % (11.6-15.6); WHITE BLOOD COUNT 6.7 K/mm3 (4.0-10.0)
[2023-04-09 09:25] LABS: POTASSIUM 4.1 mmol/L (3.5-5.1)
[2023-04-09 09:29] LABS: CALCIUM 8.5 mg/dL (8.5-10.1)
[2023-04-09 09:30] LABS: BLOOD UREA NITROGEN 3.3 mg/dL (7-18)
[2023-04-09 09:33] LABS: CREATININE 0.5 mg/dL (0.55-1.3)
[2023-04-09] MEDS: ZIPRASIDONE 20 MG CAPSULE PO SCH ×2 (10:58→18:21)
[2023-04-09] MEDS: AMOX TR/POT CLAV 875MG/125MG TABLETS (FP) PO SCH ×2 (10:58→18:21)
[2023-04-09] MEDS: ENOXAPARIN NA (PORCINE) 40 MG/0.4 ML DISP.SYRIN SQ SCH (10:59)
[2023-04-09] MEDS: amLODIPine BESYLATE 5 MG TABLET (FP) PO SCH (10:59)
[2023-04-09] MEDS: BUDESONIDE/FORMETEROL FUMARATE 80/4.5 mcg INHALER IH SCH ×2 (10:59→21:20)
[2023-04-09] MEDS: SERTRALINE HCL 50 MG TABLET (FP) PO SCH (10:59)
[2023-04-09] MEDS: PANTOPRAZOLE 40 MG TABLET PO SCH (10:59)
[2023-04-09] MEDS ORDERED: INSULIN (NOVOLOG) ASPART 100 UNITS/ML 10ML VIAL ONE (21:14)
[2023-04-09] MEDS: ATORVASTATIN CA 80 MG TABLET (FP) PO SCH (21:18)
[2023-04-09] MEDS: EZETIMIBE 10 MG TABLET (FP) PO SCH (21:19)
[2023-04-09 21:22] VITALS: BP 113/60; PULSE 98; TEMP 98.8
== END 2023-04-09 22:00 | DRG 329 ==
LOC: JER 00:53 → JERBED 05:08 → J4S 20:09 → JICU 03-04 21:52 → J2W 03-10 23:17 → J6S 03-25 16:26
PROVIDERS: ADMIT Internal Medicine; ATTEND Internal Medicine
PROC: 0DNU0ZZ Release Omentum, Open Approach (ICD-10-PCS; 2023-03-04)
PROC: 0DNL0ZZ Release Transverse Colon, Open Approach (ICD-10-PCS; 2023-03-04)
PROC: 0WQF0ZZ Repair Abdominal Wall, Open Approach (ICD-10-PCS; 2023-03-04)
PROC: XW033E5 Introduction of Remdesivir Anti-infective into Peripheral Vein, Percutaneous Approach, New Technology Group 5 (ICD-10-PCS; 2023-03-04)
PROC: 0DB80ZZ Excision of Small Intestine, Open Approach (ICD-10-PCS; principal; 2023-03-04 17:00)
PROC: 05HF33Z Insertion of Infusion Device into Left Cephalic Vein, Percutaneous Approach (ICD-10-PCS; 2023-03-08)
PROC: B54NZZA Ultrasonography of Left Upper Extremity Veins, Guidance (ICD-10-PCS; 2023-03-08)
PROC: 0W9G30Z Drainage of Peritoneal Cavity with Drainage Device, Percutaneous Approach (ICD-10-PCS; 2023-03-16)
PROC: 0D9W30Z Drainage of Peritoneum with Drainage Device, Percutaneous Approach (ICD-10-PCS; 2023-03-24)
PROC: 05HC33Z Insertion of Infusion Device into Left Basilic Vein, Percutaneous Approach (ICD-10-PCS; 2023-03-24)
PROC: B54NZZA Ultrasonography of Left Upper Extremity Veins, Guidance (ICD-10-PCS; 2023-03-24)
PROC: 0W9G30Z Drainage of Peritoneal Cavity with Drainage Device, Percutaneous Approach (ICD-10-PCS; 2023-04-01)
DX: K43.6 Other and unspecified ventral hernia with obstruction, without gangrene (principal); A41.9 Sepsis, unspecified organism; J18.9 Pneumonia, unspecified organism; J96.01 Acute respiratory failure with hypoxia; U07.1 COVID-19; K65.1 Peritoneal abscess; R65.20 Severe sepsis without septic shock; E87.20 Acidosis, unspecified; K55.9 Vascular disorder of intestine, unspecified; N17.9 Acute kidney failure, unspecified; J98.11 Atelectasis; J90 Pleural effusion, not elsewhere classified; D62 Acute posthemorrhagic anemia; E46 Unspecified protein-calorie malnutrition; Z68.41 Body mass index [BMI] 40.0-44.9, adult; I10 Essential (primary) hypertension; E11.9 Type 2 diabetes mellitus without complications; E66.01 Morbid (severe) obesity due to excess calories; E11.65 Type 2 diabetes mellitus with hyperglycemia; F32.A Depression, unspecified; E87.6 Hypokalemia; E83.42 Hypomagnesemia; E86.0 Dehydration
CPT/HCPCS: 0241U-QW; 36415; 36430; 36600; 49406; 70450-TC; 71045-TC-FY; 71270-TC; 74018-TC-FY; 74177-TC; 74178-TC; 77012-TC; 80048; 80053; 81003; 82010; 82308; 82607; 82728; 82746; 82803; 82962; 83036; 83540; 83550; 83605; 83615; 83690; 83735; 84100; 84484; 85025; 85027; 85045; 85379; 85610; 85730; 86140; 86850; 86900; 86901; 86922; 87040; 87070; 87075; 87076; 87077; 87086; 87102; 87116; 87186; 87205; 87206; 87210; 87635; 88302-TC; 88307-TC; 93005; 93010; 93971; 94640; 94660; 94760; 97116-GP; 97162-GP; 99285-25; A4358; C1729; C1769; G0480; J0248; J0637; J1100; J1644; P9058; Q9967